=== PATIENT | male | born 1935 | race Caucasian/White ===

== ENCOUNTER 2019-12-22 01:36 | Inpatient (IN) | payer MEDICARE, OTHER ==
[2019-12-22 02:22] LABS: #Eosinphils 0.1 thou/uL (0.0-0.7); #Lymphocytes 1.5 thou/uL (1.20-3.40); #Monocytes 1.8 thou/uL (0.11-0.59); #Neutrophils 10.4 thou/uL (1.40-6.50); %Basophils 0.3 % (0.0-1.0); %Eosinophils 0.5 % (0.0-10.0); %Lymphocytes 10.8 % (21.0-51.0); %Monocytes 12.7 % (0.0-10.0); %Neutrophils 75.7 % (42.0-75.0); Hemoglobin 13.1 g/dL (14.0-18.0); Mean Corpuscular HGB CONC 34.2 g/dL (32.0-36.0); Mean Corpuscular Hemoglobin 33.2 pg (27.0-31.0); Mean Corpuscular Volume 96.9 fL (78.0-98.0); Mean Platelet Volume 6.3 fL (7.4-10.4); Platelet Count 260 thou/uL (130-400); Red Blood Cell (RBC) Count 3.95 mill/uL (4.70-6.10); White Blood Cell (WBC) Count 13.8 thou/uL (4.8-10.8)
[2019-12-22 02:42] LABS: ALT (SGPT) 21 U/L (8-55); AST (SGOT) 24 U/L (5-34); Alkaline Phosphatase 67 U/L (40-110); Anion Gap 13 mmol/L (10-20); BUN (Urea Nitrogen) 14 mg/dL (8.4-25.7); Bilirubin, Total 1.3 mg/dL (0.2-1.2); Calc. Creatinine Clearance 0 mL/min (70-130); Calcium 8.7 mg/dL (7.8-10.44); Carbon Dioxide 23 mmol/L (23-31); Chloride 99 mmol/L (98-107); Estimated GFR-MDRD Greater than 90; Globulin 2.7 g/dL (2.4-3.5); Glucose 130 mg/dL (83-110); Lipase 9 U/L (8-78); Potassium 3.9 mmol/L (3.5-5.1); Protein, Total 6.7 g/dL (5.8-8.1); Sodium 131 mmol/L (136-145)
[2019-12-22] MEDS ORDERED: Ondansetron PF 4 MG/2 ML Vial ONE (04:41)
[2019-12-22] MEDS ORDERED: Sodium Chloride 0.9% 1,000 ML IV SCH ×2 (05:45→13:30)
--- NOTE | 2019-12-22 05:56 | PDOC.HHP ---
Hospitalist HPI - History of Present Illness Abdominal pain History of Present Illness: 84-year-old gentleman with a history of hypertension was brought to the emergency department after he had a syncopal episode at home. Patient stated he passed out after using the bathroom on his way back to bed. He reported a history of vasovagal syncope and orthostatic hypotension and has fallen multiple times because of orthostatic hypotension. Per report EMS found his blood pressure to be 70/40. His blood pressure stabilized after he was given 600 mL normal saline IV. Patient was alert and oriented during my examination. He was complaining of soreness in the right upper quadrant. Abdominal CT reported p ossible acute cholecystitis. Patient is hospitalized for further management. Hospitalist ROS - Review of Systems Other: Except as documented, all other systems reviewed and negative. Hospitalist History - Past Medical History Cardiac: reports: HTN, Hyperlipidemia - Past Surgical History Other Surgical History: Bowel resection. Diverting colostomy with reversal. - Family History Family History: reports: cardiac disorder (Run in both maternal and paternal sides.) - Social History Smoking Status: Never smoker Alcohol: reports: Occassional Drugs: reports: none - Exam General Appearance: NAD, awake alert Eye: PERRL, anicteric sclera ENT: normocephalic atraumatic, no oropharyngeal lesions Neck: supple, symmetric, no JVD Heart: RRR, no murmur, no gallops, no rubs, normal peripheral pulses Respiratory: CTAB, no wheezes, no rales, no ronchi Gastrointestinal: soft, non-distended, normal bowel sounds, tender to palpation (Mild tenderness to palpation of the right upper quadrant) Extremities: no cyanosis, no edema Skin: normal turgor, no lesions Neurological: cranial nerve grossly intact, no weakness, no focal deficits Musculoskeletal: normal tone, normal strength Psychiatric: normal affect, A&O x 3 Hospitalist Results - Labs Result Diagrams: 12/22/19 02:05 12/22/19 02:05 Lab results: WBC 13.8 thou/uL (4.8-10.8) H 12/22/19 02:05 Hgb 13.1 g/dL (14.0-18.0) L 12/22/19 02:05 Hct 38.3 % (42.0-52.0) L 12/22/19 02:05 MCV 96.9 fL (78.0-98.0) 12/22/19 02:05 Plt Count 260 thou/uL (130-400) 12/22/19 02:05 Neutrophils % 75.7 % (42.0-75.0) H 12/22/19 02:05 Sodium 131 mmol/L (136-145) L 12/22/19 02:05 Potassium 3.9 mmol/L (3.5-5.1) 12/22/19 02:05 Chloride 99 mmol/L (98-107) 12/22/19 02:05 Carbon Dioxide 23 mmol/L (23-31) 12/22/19 02:05 BUN 14 mg/dL (8.4-25.7) 12/22/19 02:05 Creatinine 0.81 mg/dL (0.7-1.3) 12/22/19 02:05 Glucose 130 mg/dL (83-110) H 12/22/19 02:05 Calcium 8.7 mg/dL (7.8-10.44) 12/22/19 02:05 Total Bilirubin 1.3 mg/dL (0.2-1.2) H 12/22/19 02:05 AST 24 U/L (5-34) 12/22/19 02:05 ALT 21 U/L (8-55) 12/22/19 02:05 Alkaline Phosphatase 67 U/L (40-110) 12/22/19 02:05 Troponin I 0.023 ng/mL (< 0.028) 12/22/19 02:05 Serum Total Protein 6.7 g/dL (5.8-8.1) 12/22/19 02:05 Albumin 4.0 g/dL (3.4-4.8) 12/22/19 02:05 Lipase 9 U/L (8-78) 12/22/19 02:05 Hospitalist H&P A/P - Problem (1) Syncopal episodes Code(s): R55 - SYNCOPE AND COLLAPSE Status: Acute (2) Acute cholecystitis Code(s): K81.0 - ACUTE CHOLECYSTITIS Status: Acute (3) Orthostasis Code(s): I95.1 - ORTHOSTATIC HYPOTENSION Status: Acute (4) Hypertension Code(s): I10 - ESSENTIAL (PRIMARY) HYPERTENSION Status: Acute - Plan Plan: Placed under observation on the medical floor. Supportive measures. IV opioid PRN for pain. Empiric antibiotics. Consult to general surgery-Dr. Medina. Obtain HIDA scan per Dr. Medina recommendation. Orthostatic precautions Resume home antihypertensives once systolic blood pressure is consistently above 140.
--- NOTE | 2019-12-22 06:12 | PDOC.FMACP ---
Advance Care Planning - Problem (1) Syncopal episodes Status: Acute Code(s): R55 - SYNCOPE AND COLLAPSE (2) Acute cholecystitis Status: Acute Code(s): K81.0 - ACUTE CHOLECYSTITIS (3) Orthostasis Status: Acute Code(s): I95.1 - ORTHOSTATIC HYPOTENSION (4) Hypertension Status: Acute Code(s): I10 - ESSENTIAL (PRIMARY) HYPERTENSION - Note Summary: Advanced Care Planning was discussed. The diagnosis, prognosis and goals of care were discussed. Appropriate forms and documentation to accomplish the goals of care were discussed. All questions were answered. The Palliative Care Team will be engaged to assist with completion of any outstanding forms that are needed. Patient stated he does not want life support. He has a living will written down. His is his medical power of attorney law clerk. Full code. Time Spent (mins): 18
[2019-12-22 06:46] VITALS: BMI 28.2
[2019-12-22] MEDS ORDERED: Famotidine/PF 20 mg/2ml Vial SLOW IVP SCH ×3 (09:00→21:00)
--- NOTE | 2019-12-22 12:04 | ULT ---
PRELIMINARY REPORT/[facility]/EMERGENCY AFTER HOURS PROCEDURE: Receipt of this report by the clinical staff was confirmed with Siria Mckeon MD by Shanae Montaño on Dec 22, 2019 04:50:00 CDT. Addendum electronically signed by Shanae Montaño on December 22, 2019 4:51:46 AM CDT EXAM: US Abdomen Limited, Right Upper Quadrant. CLINICAL HISTORY: HX: ABD PAIN, ELEVATED T.BILI AND WBCS. ABNORMAL GB ON CT. SEE NOTES ON LAST IMAGE. THANKS TECHNIQUE: Real-time ultrasound of the right upper quadrant with image documentation. COMPARISON: CT - CT ABDOMEN PELVIS W CON - 12/22/2019 02:53 AM CDT FINDINGS: LIVER: Unremarkable. GALLBLADDER: No gallstone. Gallbladder sludge and distention is noted with mild wall thickening at 3 .4 mm. No pericholecystic fluid. The patient demonstrates a positive sonographic Florian's sign. COMMON BILE DUCT: No dilation. Measures 5.1 mm PANCREAS: Unremarkable as visualized. The distal pancreas is obscured by overlying bowel gas. RIGHT KIDNEY: Unremarkable. No hydronephrosis. Measures 12.6 cm IMPRESSION: The findings suggest acalculous cholecystitis ELECTRONICALLY SIGNED BY: Dung Rodriguez MD Dec 22, 2019 4:46:24 AM CDT FINAL REPORT GALLBLADDER ULTRASOUND: HISTORY: Right upper quadrant pain. FINDINGS: Real-time imaging of the right upper quadrant shows a very distended gallbladder. The technologist d escribes a positive ultrasound Florian's sign. There is some sludge, but no sludge, but no stones trent ntified. considering the degree of gallbladder distention, the gallbladder wall appears mildly thick ened. The visualized liver parenchyma shows no focal findings. The common duct is 5 mm. The right kidney is 5 mm. The right kidney is normal in size and nonobstructed. IMPRESSION: 1. Markedly distended gallbladder without evidence of gallstones. A suggestion of some gallbladder wall thickening considering the degree of distention. This could indicate an acalculus cholecystitis . There is a positive ultrasound Florian's sign. 2. This report is in agreement with the temporary report issued by [facility]. POS: OFF
--- NOTE | 2019-12-22 12:06 | CT ---
PRELIMINARY REPORT/[facility]/EMERGENCY AFTER HOURS PROCEDURE: Receipt of this report by the clinical staff was confirmed with Siria Mckeon MD by Shanae Montaño on Dec 22, 2019 03:30:00 CDT. Addendum electronically signed by Shanae Montaño on December 22, 2019 3:30:15 AM CDT EXAM: CT Abdomen and Pelvis with Intravenous Contrast CLINICAL HISTORY: ER 5... 84-year-old male presents via EMS after syncopized at home. The patient got up to use the bathroom and when he got back to bed passed out. called EMS. Patient does have a history of this and has been diagnosed with vasovagal syncope in the past. When paramedics arrived th e patient's initial blood pressures were 70s over 40s. Normalized following 600 mL normal saline. Asy mptomatic since that time apart from mild mid abdominal pain. Surgical history of hernia repair. Bloc ked colon 2000 with colostomy. TECHNIQUE: Axial computed tomography images of the abdomen and pelvis with intravenous contrast. Cor onal and sagittal reformatted images are provided. CONTRAST: With; ISOVUE 370, 90ML intravenous. COMPARISON: CT of the abdomen and pelvis 11/15/2010. FINDINGS: LUNG BASES: Bibasilar subsegmental linear atelectasis and/or scarring. The heart is normal size. No pericardial effusion. Coronary artery disease. LIVER: Unremarkable. GALLBLADDER AND BILE DUCTS: Hydropic gallbladder with suggestion of gallbladder wall thickening. Ther e are no radiodense stones within the gallbladder. PANCREAS: Unremarkable. SPLEEN: Unremarkable. ADRENAL GLANDS: Unremarkable. KIDNEYS, URETERS, AND BLADDER: Unremarkable. No hydronephrosis or nephrolithiasis. No ureteral or masoud dder calculi. STOMACH AND BOWEL: Colonic stool burden is large. No acute diverticulitis. No evidence of bowel obstr uction. APPENDIX: No CT evidence for appendicitis. PERITONEUM: No free fluid. No free air. LYMPH NODES: No lymphadenopathy. REPRODUCTIVE: Unremarkable as visualized. VASCULATURE: No aortic aneurysm. Atherosclerotic vascular disease. BONES: No fracture or suspicious osseous abnormality. Multilevel degenerative changes of the spine. ABDOMINAL WALL AND SOFT TISSUES: Right fat-containing inguinal hernia. IMPRESSION: 1. Hydropic gallbladder with wall thickening. This could represent acute cholecystitis in the appro priate clinical setting. Further imaging evaluation could be considered with ultrasound. Consider s urgical evaluation. 2. Large colonic stool burden. Correlate for constipation. 3. Right greater than left bibasilar dependent atelectasis. Superimposed pneumonia cannot be entire ly excluded. 4. Coronary artery disease. ELECTRONICALLY SIGNED BY: J Carlos Cosme M.D. Dec 22, 2019 3:23:57 AM CDT FINAL REPORT EMERGENT AFTER HOURS CT ABDOMEN AND PELVIS PERFORMED WITH COTNRAST ENHANCEMENT: HISTORY: Mid abdominal pain. History of colostomy. The patient is syncopal. COMPARISON: An 04/05/2018 exam. FINDINGS: The lung bases show bibasilar atelectatic change, worse in the right base. Coronary calcifications a re noted. The liver and spleen are unremarkable. The pancreas is atrophic. The gallbladder is markedly disten ded. There is gallbladder wall thickening associated with this. Right and left adrenal glands and right and left kidneys are normal in size. There is no significant periaortic or mesenteric adenopathy. The infrarenal aorta is ectatic but not aneurysmal. Measureme nts of approximately 2.8 cm are obtained. There is a large amount of stool present within the colon. CT OF PELVIS PERFORMED WITH CONTRAST ENHANCEMENT: It is difficult to definitively identify the appendix. I see no inflammatory change. No free fluid. The bladder is mildly distended. No pelvic lymphadenopathy or mass. Arthritic changes of the spine are noted. IMPRESSION: 1. Distended gallbladder with gallbladder wall thickening raising the possibility of cholecystitis. Ultrasound would be recommended for assessment. 2. Bibasilar atelectatic lung change. 3. Large stool burden suggesting constipation. 4. This report is in agreement with the temporary report issued by [facility]. POS: OFF
[2019-12-22 12:14] LABS: SARS-CoV-2 MS2 Positive; SARS-CoV-2 N Gene Negative; SARS-CoV-2 S Gene Negative; SARS-CoV-2 by NAA Not Detected (NotDetected); SARS-CoV-2 orf1ab Negative
--- NOTE | 2019-12-22 13:08 | RAD ---
PORTABLE CHEST: HISTORY: Syncopal episode. COMPARISON: 11/12/2018 exam. FINDINGS: Heart size is upper limits of normal. The aorta is tortuous with some atherosclerotic change. The l ungs are clear of any infiltrative process. IMPRESSION: Borderline heart size with mild chronic lung change. POS: OFF
[2019-12-22] MEDS ORDERED: Iopamidol 370 76% 100 ML VIAL ONE (13:39)
[2019-12-22] MEDS: Fentanyl 100 MCG/2 ML VIAL SLOW IVP PRN ×4 (14:17→23:36)
[2019-12-22 14:43] LABS: INR-International Normal Ratio 1.1; PTT 31.3 sec (22.9-36.1); Prothrombin Time 14.5 sec (12.0-14.7)
[2019-12-22] MEDS ORDERED: Sodium Bicarbonate 2.5 MEQ/5 ML VIAL ONE (15:39)
[2019-12-22] MEDS ORDERED: Fentanyl 100 MCG/2 ML VIAL ONE (15:40)
[2019-12-22] MEDS ORDERED: Midazolam HCl 2 mg/2 ml Vial ONE (15:40)
--- NOTE | 2019-12-22 18:10 | CON ---
DATE OF CONSULTATION: CHIEF COMPLAINT: Right upper quadrant soreness. HISTORY OF PRESENT ILLNESS: The patient is an 84-year-old male who was admitted after syncopal episode last night. With time, he reports increasing right upper quadrant soreness and pain and it is progressive. PAST MEDICAL HISTORY: Hypertension, hyperlipidemia, coronary artery disease. PAST SURGICAL HISTORY: Had colon resection, colostomy closure, knee surgery. MEDICATIONS: Include: 1. MiraLAX. 2. Toprol-XL. 3. Creon. 4. Citracal. 5. Lipitor. 6. Aspirin. FAMILY HISTORY: Heart disease. 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 Judd. He is . He is retired. No tobacco. PHYSICAL EXAMINATION: VITAL SIGNS: Temperature 99.5, pulse 73, blood pressure 150/73. GENERAL: He is in pain. HEENT: No jaundice. LUNGS: Clear. HEART: Regular rate and rhythm. ABDOMEN: Distended and very tender in the right upper quadrant with a positive Florian sign. Well-healed surgical scar midline. No hernias. EXTREMITIES: Unremarkable. LABORATORY DATA: His white count is 13.8, H and H of 13 and 38, and platelet count 260. Electrolytes, elevated glucose at 132, sodium 131, T bilirubin is 1.3. COVID is negative. CT scan of the abdomen shows hydrops of the gallbladder, very distended with possible wall thickening. No stones. Ultrasound shows again no stones, mild wall thickening. No pericholecystic fluid. Common bile duct normal at 5.1 mm. ASSESSMENT: Probable acalculous cholecystitis, but with underlying severe cardiac disease, possible with arrhythmias causing syncopal episodes. PLAN: I am not sure we can get clearance for a few days with Cardiology due to necessary tests after speaking with the immigration coordinator anhydrous ammonia production supervisor, so the plan is to consult Radiology for percutaneous drainage of the gallbladder, cholecystostomy tube, and then subsequent lap vianey when he is cleared by Cardiology. Job ID: [id number]
--- NOTE | 2019-12-22 20:33 | CT ---
CT DIRECTED CHOLECYSTOSTOMY TUBE PLACEMENT: 12/22/19 HISTORY: Patient had a positive ultrasound Florian's sign and clinically pain over the gallbladder region. Dr. Medina requested a CT directed percutaneous drainage of the gallbladder due to surgical risk. After informed consent was obtained, the patient was prepped and draped in a normal sterile fashion. Local anesthesia was obtained with 1% Xylocaine. A small skin incision was made with a #11 scalpel bl britany. A 6 [place] Uresil catheter was introduced into the gallbladder through the right lobe of the alexa er by trocar type technique. A single mass was used and catheter was placed without difficulty. Approximately 200 mL of bile was obtained. Some was sent to the lab for analysis. IMPRESSION: Successful percutaneous directed cholecystostomy tube placement. No immediate complications of the pr ocedure. POS: GRISELDA
[2019-12-22] MEDS: Famotidine/PF 20 mg/2ml Vial SLOW IVP SCH (20:53)
[2019-12-23] MEDS: Fentanyl 100 MCG/2 ML VIAL SLOW IVP PRN ×3 (04:43→21:31)
[2019-12-23 08:06] LABS: Hemoglobin 14.8 g/dL (14.0-18.0); Mean Corpuscular HGB CONC 33.8 g/dL (32.0-36.0); Mean Corpuscular Hemoglobin 33.1 pg (27.0-31.0); Mean Corpuscular Volume 97.8 fL (78.0-98.0); Mean Platelet Volume 6.4 fL (7.4-10.4); Platelet Count 256 thou/uL (130-400); RBC Distribution Width 12.1 % (11.5-14.5); Red Blood Cell (RBC) Count 4.47 mill/uL (4.70-6.10); White Blood Cell (WBC) Count 23.1 thou/uL (4.8-10.8)
[2019-12-23 08:13] LABS: Anion Gap 13 mmol/L (10-20); BUN (Urea Nitrogen) 13 mg/dL (8.4-25.7); Calc. Creatinine Clearance 98 mL/min (70-130); Calcium 9.2 mg/dL (7.8-10.44); Carbon Dioxide 22 mmol/L (23-31); Chloride 99 mmol/L (98-107); Estimated GFR-MDRD Greater than 90; Glucose 137 mg/dL (83-110); Potassium 4.1 mmol/L (3.5-5.1); Sodium 130 mmol/L (136-145)
[2019-12-23 08:37] LABS: Eosinophils 1 % (0-10); Lymphocytes 4 % (21-51); MDiff Complete? YES; Monocytes 8 % (0-10); Neutrophil 85 % (42-75); Reactive Lymphocytes 2 % (0-10)
[2019-12-23] MEDS: Famotidine/PF 20 mg/2ml Vial SLOW IVP SCH ×2 (09:03→19:41)
[2019-12-23] MEDS: Sodium Chloride 0.9% 1,000 ML IV SCH ×2 (09:10→23:50)
--- NOTE | 2019-12-23 10:52 | PRG ---
DATE OF SERVICE: 12/23/2019 SUBJECTIVE: The patient feels better since he has gallbladder drained. He is putting out 180 so far. The cultures growing gram-variable rods. He is now on Levaquin and Flagyl. OBJECTIVE: VITAL SIGNS: His temperature is 97.6, pulse 90, blood pressure 137/78. GENERAL: He looks pretty good. ABDOMEN: Soft. Minimal tenderness. ASSESSMENT: Acalculous cholecystitis. PLAN: Await cardiology clearance. Eventual lap vianey. Job ID: [id number]
--- NOTE | 2019-12-23 11:03 | PDOC.HOSPP ---
- Subjective Encounter Date: 12/23/19 Encounter Time: 10:57 Subjective: Pt reports his abdominal pain has somewhat improved. Denies N/V/D. Reports constipation for three days, but endorses flatus. Denies chest pain, SOB, palpitations. Pt examined at bedside, chart and medications reviewed. - Objective Vital Signs & Weight: Vital Signs (12 hours) Temp Pulse Resp BP Pulse Ox 12/23/19 07:18 97.6 F 90 18 137/78 95 12/22/19 23:40 98.2 F 84 18 160/82 H 95 Weight Weight 213 lb 13.574 oz I&O: 12/22/19 12/23/19 12/24/19 06:59 06:59 06:59 Intake Total 1330 Output Total 1230 Balance 100 Result Diagrams: 12/23/19 07:41 12/23/19 07:41 Hospitalist ROS - Review of Systems Constitutional: denies: fever, chills Eyes: denies: vision change Respiratory: denies: cough, dry, shortness of breath Cardiovascular: denies: chest pain, palpitations, orthopnea Gastrointestinal: reports: abdominal pain. denies: nausea, vomiting, diarrhea Genitourinary: denies: dysuria Skin: denies: rash Neurological: denies: weakness, numbness - Medication Medications: Active Medications Generic Name Dose Route Start Last Admin Trade Name Freq PRN Reason Stop Dose Admin Famotidine 20 mg 12/22/19 21:00 12/23/19 09:03 Famotidine/Pf 20 Mg/2ml Vial SLOW IVP 20 mg Q12HR NICKIE Administration Fentanyl 25 mcg 12/22/19 13:34 12/23/19 04:43 Fentanyl 100 Mcg/2 Ml Vial SLOW IVP 25 mcg Q2H PRN Administration Pain Levofloxacin 500 mg/ Device 100 mls @ 100 mls/hr 12/23/19 09:00 12/23/19 09:03 IVPB 100 mls Q24HR NICKIE Administration - Exam General Appearance: NAD, awake alert Eye: PERRL, anicteric sclera ENT: normocephalic atraumatic, no oropharyngeal lesions, moist mucosa Neck: supple, symmetric, no JVD, no thyromegaly, no lymphadenopathy, no carotid bruit Heart: RRR, no murmur, no gallops, no rubs, normal peripheral pulses Respiratory: CTAB, no wheezes, no rales, no ronchi, normal chest expansion, no tachypnea, normal percussion Gastrointestinal: soft, non-distended, normal bowel sounds, no palpable masses, no bruit, tender to palpation Extremities: no cyanosis, no clubbing, no edema Skin: normal turgor, no lesions, no rashes Neurological: cranial nerve grossly intact, normal sensation to touch, no weakn ess, no focal deficits, no new deficit Musculoskeletal: normal tone, normal strength, no muscle wasting Psychiatric: normal affect, normal behavior, A&O x 3 Hosp A/P (1) Abdominal pain Code(s): R10.9 - UNSPECIFIED ABDOMINAL PAIN Status: Acute (2) Leukocytosis Code(s): D72.829 - ELEVATED WHITE BLOOD CELL COUNT, UNSPECIFIED Status: Acute (3) Acute cholecystitis Code(s): K81.0 - ACUTE CHOLECYSTITIS Status: Acute (4) Hypertension Code(s): I10 - ESSENTIAL (PRIMARY) HYPERTENSION Status: Acute (5) Syncopal episodes Code(s): R55 - SYNCOPE AND COLLAPSE Status: Acute - Plan Acute Cholecystitis: 84F hx of HTN and recurrent vasovagal syncope presents with syncopal episode and RUQ abdominal pain. CT abdomen pelvis showed evidence of acute cholecystitis. LFTs with elevated t. refugio to 1.3. Afebrile. WBC 13.8. Pt started on IV levaquin. General surgery, Dr. Medina consulted. Pt underwent IR drainage of abscess and drain placement on 12/21 with plan for lap vianey once cardiovascular risks are evaluated by cardiology. Labs today show increasing WBC count to 23. Will add on flagyl for anaerobe coverage. Abscess cultures pending. PLAN: -Continue IV levaquin -Add IV flagyl -General surgery following -Cards consulted for cardiac eval Syncope: Pt p/w syncopal episode after going to the bathroom. BP by EMS was 70/40, improved with 600cc NS. BP now elevated to 160s. Pt with history of vasovagal/orthostatic syncopal episodes. EKG NSR, no ischemic changes. Cardiology consulted. PLAN: -Likely vasovagal -Cardiology consult -Telemetry -Orthostatic VS -Check electrolytes, TSH, Mg Hyponatremia: Na 131 this am. Likely hypovolemic hyponatremia. WIll check urine osm, na. Start gentle NS. PLAN: -NS @ 75 cc/hr -Q6hr Na -Sodium correction not to exceed 8 mEqs in 24 hrs -Urine studies Constipation: Hx of chronic constipation. Takes miralax at home. Pt reports 3 days without BM. Endorses flatus. Will re-start home miralax. Hypertension: Hold home BP meds in setting of syncope. CAD: Hx of CAD. Continue home ASA 81 mg, hold metoprolol in setting of hypotension/syncope. Hyperlipidemia: Continue home atorvastatin 20 mg DVT prophylaxis: lovenox FULL CODE Case discussed with attending physician, Dr. Chaves.
--- NOTE | 2019-12-23 11:24 | CON ---
DATE OF CONSULTATION: REASON FOR CONSULTATION: Syncope. 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 Alejandro Judd. HISTORY OF PRESENT ILLNESS: Mr. Moya is an 84-year-old gentleman who was seen and evaluated by Dr. Alejandro Judd in the past. States the events surrounding his most recent admission included getting up in the middle of the night on Tuesday. He went to the bathroom and developed some mild lightheadedness. He returned to his bed. He states his stated he had a syncopal episode. He has had lightheadedness, dizziness, and syncope noted since the age of 22. He has had a full cardiac workup in the past. He has not had a recent echo performed. His last stress study was performed in 2010. He denies chest pain, pressure, or other associated symptoms. He was diagnosed with cholecystitis. He underwent CT-guided drainage with 200 mL of bile removed yesterday. He is now awaiting a cholecystectomy. PAST MEDICAL HISTORY: Includes carotid disease, hypertension, mild aortic stenosis, hyperlipidemia, paroxysmal atrial fibrillation, hypertension, hyperlipidemia. HOME MEDICATIONS: Include, 1. Zocor. 2. Amlodipine. 3. Clonidine p.r.n. 4. Metoprolol. 5. Aspirin. 6. Omeprazole. 7. Citracal. 8. Astelin. 9. Ibuprofen p.r.n. 10. MiraLAX. 11. Creon. SURGICAL HISTORY: Knee replacement. FAMILY HISTORY: Father with stroke. Otherwise, no significant CAD. ALLERGIES: PENICILLIN, LATEX, MORPHINE. REVIEW OF SYSTEMS: A 10-point review of systems is reviewed as above, otherwise negative. PHYSICAL EXAMINATION: GENERAL: Patient is a pleasant 84-year-old gentleman who is in no acute distress. The patient appears their stated age. VITAL SIGNS: Blood pressure 137/78, pulse 90, temperature 97.6. NEUROLOGIC: The patient is alert and oriented x3 with no focal neurologic deficits. HEENT: Sclerae without icterus. Mouth has moist mucous membranes with normal pallor. NECK: No JVD. Carotid upstroke brisk. No bruits bilaterally. LUNGS: Clear to auscultation with unlabored respirations. BACK: No scoliosis or kyphosis. CARDIAC: Regular rate and rhythm with normal S1 and S2. No S3 or S4 noted. No significant rubs, murmurs, thrills, or gallops noted throughout the precordium. PMI is not displaced. There is no parasternal heave. ABDOMEN: Soft, nontender, nondistended. No peritoneal signs present. No hepatosplenomegaly. No abnormal striae. EXTREMITIES: 2+ femoral and 2+ dorsalis pedis pulses. No cyanosis, clubbing, or edema. SKIN: No gross abnormalities. PERTINENT LABORATORY DATA: Hemoglobin 14.8, hematocrit 43.7, white blood cell count 23.1, platelet count 256. Potassium 4.1, creatinine 0.77. IMPRESSION: 1. Syncope. 2. Paroxysmal atrial fibrillation. 3. Cholecystitis. RECOMMENDATIONS: Mr. Moya states this is a chronic condition and has been noted since the age of 22. He has had a full cardiac workup in the past that is felt to be negative. At this point, I recommend echo Doppler to assess LVEF and assess his aortic stenosis. Given no current symptoms suggesting angina with the EKG appearing normal with no ST-T wave changes suggesting acute ischemia, would be okay to proceed with cholecystectomy. He is considered low risk for low-risk procedure. Timing will be up to Dr. Medina. Otherwise, further recommendation per Dr. Alejandro Judd in a.m. Job ID: [id number]
[2019-12-23] MEDS: metroNIDAZOLE 500 MG in Premix Bag 1 BAG IVPB SCH ×2 (14:19→21:32)
[2019-12-23 15:18] LABS: Sodium 130 mmol/L (136-145)
[2019-12-23] MEDS: Polyethylene Glycol 3350 17 GM Packet PO PRN (17:26)
[2019-12-23] MEDS: Atorvastatin Calcium 20 MG TAB PO SCH (19:41)
[2019-12-23 20:20] LABS: Sodium 128 mmol/L (136-145)
[2019-12-24] MEDS: Calcium Carbonate 500 MG ChewTAB PO PRN ×2 (03:58→18:46)
[2019-12-24] MEDS: Sodium Chloride 0.9% 1,000 ML IV SCH ×2 (03:59→20:15)
[2019-12-24 05:26] LABS: Band 7 % (5-11); Hemoglobin 13.9 g/dL (14.0-18.0); Lymphocytes 3 % (21-51); MDiff Complete? YES; Mean Corpuscular HGB CONC 33.6 g/dL (32.0-36.0); Mean Corpuscular Hemoglobin 32.7 pg (27.0-31.0); Mean Corpuscular Volume 97.2 fL (78.0-98.0); Mean Platelet Volume 6.6 fL (7.4-10.4); Monocytes 8 % (0-10); Neutrophil 82 % (42-75); Platelet Count 256 thou/uL (130-400); Platelet Morphology Comment Appears Adequate; Red Blood Cell (RBC) Count 4.27 mill/uL (4.70-6.10); White Blood Cell (WBC) Count 19.2 thou/uL (4.8-10.8)
[2019-12-24 05:30] LABS: Anion Gap 15 mmol/L (10-20); BUN (Urea Nitrogen) 22 mg/dL (8.4-25.7); Calc. Creatinine Clearance 97 mL/min (70-130); Carbon Dioxide 19 mmol/L (23-31); Chloride 100 mmol/L (98-107); Estimated GFR-MDRD Greater than 90; Glucose 128 mg/dL (83-110); Potassium 3.8 mmol/L (3.5-5.1); Sodium 130 mmol/L (136-145)
[2019-12-24] MEDS: metroNIDAZOLE 500 MG in Premix Bag 1 BAG IVPB SCH ×3 (06:25→20:16)
[2019-12-24 08:36] LABS: Sodium 132 mmol/L (136-145)
[2019-12-24] MEDS: Famotidine/PF 20 mg/2ml Vial SLOW IVP SCH ×2 (09:13→20:16)
[2019-12-24] MEDS: Aspirin 81 mg Enteric Coated Tablet PO SCH (09:13)
--- NOTE | 2019-12-24 09:20 | PRG ---
DATE OF SERVICE: 12/24/2019 SUBJECTIVE: The patient reports feeling better today, really much better pain. He is hungry. He is asking for some toast and coffee. No nausea or vomiting. PHYSICAL EXAMINATION: VITAL SIGNS: His temperature 97.8, pulse 85, blood pressure 143/85. GENERAL: He looks good. He is in the middle of getting an echocardiogram. 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 LABORATORY DATA: His white count is 19, down from 23; hemoglobin and hematocrit of 13 and 41; and platelet count 256. His electrolytes are okay. ASSESSMENT: Improving acute cholecystitis after drainage. PLAN: Continue cardiac workup. Once more stable, consider cholecystectomy. Job ID: [id number]
[2019-12-24] MEDS ORDERED: Ondansetron ODT 4 MG TAB PO PRN (10:15)
--- NOTE | 2019-12-24 10:25 | PDOC.HOSPP ---
- Subjective Encounter Date: 12/24/19 Encounter Time: 10:23 Subjective: Patient seen and examined. No new complaints. No overnight events. Patient reports feeling nauseated, tolerating oral intake. Reports feeling bloated, LBM 3-4 days. Denies vomiting. Denies chest pain, heart palpitations, SOB or Light headedness at time of interview. Denies feeling feverish or chills. - Objective Vital Signs & Weight: Vital Signs (12 hours) Temp Pulse Resp BP BP BP Pulse Ox 12/24/19 07:23 97.8 F 85 14 143/85 H 93 L 12/24/19 06:15 98.0 F 87 18 130/84 92 L 12/23/19 23:33 98.2 F 81 18 137/76 94 L Weight Weight 213 lb 13.574 oz I&O: 12/23/19 12/24/19 12/25/19 06:59 06:59 06:59 Intake Total 1330 85647 Output Total 1350 1350 Balance -20 34401 Result Diagrams: 12/24/19 04:51 12/24/19 07:50 Hospitalist ROS - Review of Systems Constitutional: denies: fever, chills Respiratory: denies: cough, shortness of breath, hemoptysis Cardiovascular: denies: chest pain, palpitations, edema, light headedness Gastrointestinal: reports: nausea, abdominal pain (RUQ), constipation (chronic, LBM 3-4 days). denies: vomiting, diarrhea, melena, hematochezia Genitourinary: denies: dysuria, hematuria Skin: denies: rash, bruising Neurological: denies: weakness, change in speech, confusion All other systems reviewed; all pertinent +/- noted in HPI/Subj - Medication Medications: Active Medications Generic Name Dose Route Start Last Admin Trade Name Freq PRN Reason Stop Dose Admin Aspirin 81 mg 12/24/19 09:00 12/24/19 09:13 Aspirin 81 Mg Enteric Coated Tablet PO 81 mg DAILY NICKIE Administration Atorvastatin Calcium 20 mg 12/23/19 21:00 12/23/19 19:41 Atorvastatin Calcium 20 Mg Tab PO 20 mg HS NICKIE Administration Calcium Carbonate 1,000 mg 12/24/19 03:43 12/24/19 03:58 Calcium Carbonate 500 Mg Chewtab PO 1,000 mg Q4H PRN Administration Heartburn or Indigestion Famotidine 20 mg 12/22/19 21:00 12/24/19 09:13 Famotidine/Pf 20 Mg/2ml Vial SLOW IVP 20 mg Q12HR NICKIE Administration Fentanyl 25 mcg 12/22/19 13:34 12/23/19 21:31 Fentanyl 100 Mcg/2 Ml Vial SLOW IVP 25 mcg Q2H PRN Administration Pain Levofloxacin 500 mg/ Device 100 mls @ 100 mls/hr 12/23/19 09:00 12/24/19 09:13 IVPB 100 mls Q24HR NICKIE Administration Metronidazole 500 mg/ Device 100 mls @ 100 mls/hr 12/23/19 14:00 12/24/19 06:25 IVPB 100 mls Q8HR NICKIE Administration Sodium Chloride 1,000 mls @ 75 mls/hr 12/23/19 08:30 12/24/19 03:59 Normal Saline 0.9% IV 1,000 mls .[id number] NICKIE Administration Polyethylene Glycol 17 gm 12/23/19 09:05 12/23/19 17:26 Polyethylene Glycol 3350 17 Gm Packet PO 17 gm DAILYPRN PRN Administration Constipation - Exam General Appearance: NAD, awake alert Eye: anicteric sclera ENT: normocephalic atraumatic, dry oral mucosa Neck: supple, symmetric, no JVD Heart: RRR, no gallops, no rubs, normal peripheral pulses, III/IV (aortic listening point) Respiratory: CTAB, no wheezes, no rales, no ronchi, normal chest expansion, no tachypnea Gastrointestinal: soft, normal bowel sounds, no bruit, no guarding, no rigidity, tender to palpation (RUQ, + cardona sign), distended Extremities: no cyanosis, no edema Neurological: no focal deficits Musculoskeletal: normal tone, normal strength Psychiatric: normal affect, A&O x 3 Hosp A/P (1) Acute cholecystitis Code(s): K81.0 - ACUTE CHOLECYSTITIS Status: Acute (2) Syncopal episodes Code(s): R55 - SYNCOPE AND COLLAPSE Status: Acute (3) Hyponatremia Code(s): E87.1 - HYPO-OSMOLALITY AND HYPONATREMIA Status: Acute (4) Constipation Code(s): K59.00 - CONSTIPATION, UNSPECIFIED Status: Chronic (5) HTN (hypertension) Code(s): I10 - ESSENTIAL (PRIMARY) HYPERTENSION Status: Chronic - Plan # Acute cholecystitis IR drain in place WBC 19.2, down from 23.1 Continue flagyl and levaquin IVPB Cardiology recs appreciate. Echo pending Cleared by cardiology for surgery # Syncopal episode Cardiology recs appreciated. Echo pending, Hx Orthostatic hypotension positive. Continue tele monitoring. # Hyponatremia Hypotonic hyponetremia Na 131, improved with IVF. Continue IVF Serum Na q6 hours. # Constipation A: abd. distended, LBM 3-4 days takes miralax daily, continue Add sennakot and fleet enema #HTN BP slightly elevated, HR 80s. Restart home dose BB. Discussed case with Dr. Chaves.
[2019-12-24] MEDS ORDERED: Senokot S 8.6-50 MG TAB PO PRN (10:46)
[2019-12-24] MEDS: Ondansetron PF 4 MG/2 ML Vial IVP PRN ×2 (11:32→20:24)
[2019-12-24] MEDS: Polyethylene Glycol 3350 17 GM Packet PO PRN (11:33)
[2019-12-24] MEDS: Fentanyl 100 MCG/2 ML VIAL SLOW IVP PRN ×2 (13:47→21:55)
--- NOTE | 2019-12-24 14:22 | CT ---
CT DIRECTED CHOLECYSTOSTOMY TUBE PLACEMENT: 12/22/19 HISTORY: Patient had a positive ultrasound Florian's sign and clinically pain over the gallbladder region. Dr. Medina requested a CT directed percutaneous drainage of the gallbladder due to surgical risk. After informed consent was obtained, the patient was prepped and draped in a normal sterile fashion. Local anesthesia was obtained with 1% Xylocaine. A small skin incision was made with a #11 scalpel bl britany. A 6 [place] Island[place] Uresil catheter was introduced into the gallbladder through the right lobe of the alexa er by trocar type technique. A single mass was used and catheter was placed without difficulty. Approximately 200 mL of bile was obtained. Some was sent to the lab for analysis. IMPRESSION: Successful percutaneous directed cholecystostomy tube placement. No immediate complications of the pr ocedure.
[2019-12-24] MEDS ORDERED: Fleet Enema 133 ML BOT PR SCH (14:30)
[2019-12-24 15:06] LABS: Sodium 133 mmol/L (136-145)
[2019-12-24] MEDS: Atorvastatin Calcium 20 MG TAB PO SCH (20:16)
[2019-12-25] MEDS: Fentanyl 100 MCG/2 ML VIAL SLOW IVP PRN (01:01)
[2019-12-25] MEDS: metroNIDAZOLE 500 MG in Premix Bag 1 BAG IVPB SCH (04:58)
[2019-12-25] MEDS: Ondansetron PF 4 MG/2 ML Vial IVP PRN (05:00)
[2019-12-25 05:40] LABS: #Lymphocytes 1.4 thou/uL (1.20-3.40); #Monocytes 1.4 thou/uL (0.11-0.59); #Neutrophils 11.4 thou/uL (1.40-6.50); %Basophils 0.1 % (0.0-1.0); %Eosinophils 0.2 % (0.0-10.0); %Monocytes 9.7 % (0.0-10.0); %Neutrophils 79.9 % (42.0-75.0); Hemoglobin 13.9 g/dL (14.0-18.0); Mean Corpuscular HGB CONC 33.7 g/dL (32.0-36.0); Mean Corpuscular Hemoglobin 32.8 pg (27.0-31.0); Mean Corpuscular Volume 97.3 fL (78.0-98.0); Mean Platelet Volume 6.6 fL (7.4-10.4); Platelet Count 272 thou/uL (130-400); Red Blood Cell (RBC) Count 4.24 mill/uL (4.70-6.10); White Blood Cell (WBC) Count 14.3 thou/uL (4.8-10.8)
[2019-12-25 06:06] LABS: Anion Gap 14 mmol/L (10-20); BUN (Urea Nitrogen) 25 mg/dL (8.4-25.7); Calc. Creatinine Clearance 98 mL/min (70-130); Carbon Dioxide 21 mmol/L (23-31); Chloride 102 mmol/L (98-107); Estimated GFR-MDRD Greater than 90; Glucose 112 mg/dL (83-110); Potassium 3.7 mmol/L (3.5-5.1); Sodium 133 mmol/L (136-145)
[2019-12-25] MEDS: Aspirin 81 mg Enteric Coated Tablet PO SCH (08:44)
[2019-12-25] MEDS: Famotidine/PF 20 mg/2ml Vial SLOW IVP SCH (08:44)
--- NOTE | 2019-12-25 08:44 | PRG ---
DATE OF SERVICE: 12/25/2019 SUBJECTIVE: The patient feels really good. He says pain is just about gone. He wants to go home. OBJECTIVE: VITAL SIGNS: His temperature is 98, pulse 68, blood pressure 165/90. He looks good. His drain is putting out 200. His white count is down to 14 from 23. The culture is growing, well here it just says moderate Gram variable rods, but it is not growing anything. ASSESSMENT: Acute cholecystitis. PLAN: Complete cardiac clearance. It would be best to send him home with the drain. Follow up with me in 2 weeks. We will schedule elective surgery in about a month when the inflammation is less. Job ID: [id number]
[2019-12-25 11:53] VITALS: TEMP 98.2
[2019-12-25 13:07] VITALS: BP 158/81
--- NOTE | 2019-12-25 15:20 | DIS ---
DATE OF ADMISSION: 12/22/2019 DATE OF DISCHARGE: 12/25/2019 DISCHARGE DIAGNOSES: 1. Acute cholecystitis, [acalculous cholecystitis] status post drain placement. 2. Syncopal episode. 3. Orthostatic hypotension. 4. Hypotonic hyponatremia. Sodium improved to 133 on the day of discharge. 5. Constipation. 6. Hypertension. DISCHARGE MEDICATIONS: There is no change in his home medications. 1. Toprol-XL 25 mg daily. 2. Creon 1 capsule daily. 3. Lipitor 20 mg at bedtime. 4. Aspirin 81 mg daily. 5. Calcium supplements. PHYSICAL EXAMINATION: VITAL SIGNS: On the day of discharge, the temperature 98.2, pulse 86, blood pressure 145/83, saturating 94% on room air. GENERAL: The patient is alert, oriented. He has a drain on his right side, bilious fluid. He knows how to empty the drain. He also knows how to cover it while he is taking the shower. CARDIOVASCULAR: Regular rate and rhythm without murmurs, rubs, or gallops. LUNGS: Clear to auscultation bilaterally without wheezing, rales, or rhonchi. ABDOMEN: Soft, nontender, nondistended. Good bowel sounds. EXTREMITIES: Without any pitting edema. He has a drain in his right lower quadrant. HOSPITAL COURSE: This is a 84-year-old male admitted with syncopal episode, orthostasis positive. Reportedly increasing right upper quadrant soreness and pain. Initially, his white count of 13.8 jumped to 23,000 and trended down to 14.3 after the drain placement. His creatinine is in the normal range. His alkaline phosphatase on initial presentation is 67 and AST 24, ALT 21, so likely acalculous cholecystitis. There is percutaneous drainage off the gallbladder placed and they like to let it drain for 2 more weeks and then elective cholecystectomy after that period. His echo showed EF of 65%, moderately dilated left atrium . Cardiology cleared him. He will be coming back in 2 weeks for elective cholecystectomy. Surgery cleared him for discharge. He will resume his regular diet and continue his home medications without much change. DISCHARGE INSTRUCTIONS: Activity as tolerated. Follow up with PCP in 1 week. Follow up with General surgery, Dr. Medina and Dr. Cummins's group in 2 weeks' time. Discharge time took over 35 minutes. Job ID: [id number] MTDD
== END 2019-12-25 14:40 | disposition home or self-care (01) | DRG 445 ==
LOC: ERS 01:36 → SURG A 06:26
PROVIDERS: ADMIT Internal Medicine; ATTEND Internal Medicine
PROC: 0F9430Z Drainage of Gallbladder with Drainage Device, Percutaneous Approach (ICD-10-PCS; principal; 2019-12-22)
DX: K81.0 Acute cholecystitis (principal); E87.1 Hypo-osmolality and hyponatremia; I95.1 Orthostatic hypotension; I10 Essential (primary) hypertension; E78.00 Pure hypercholesterolemia, unspecified; D72.829 Elevated white blood cell count, unspecified; I25.10 Atherosclerotic heart disease of native coronary artery without angina pectoris; Z96.651 Presence of right artificial knee joint; K59.00 Constipation, unspecified; I48.0 Paroxysmal atrial fibrillation; I35.0 Nonrheumatic aortic (valve) stenosis; Z93.3 Colostomy status; Z91.040 Latex allergy status; Z88.0 Allergy status to penicillin; Z88.6 Allergy status to analgesic agent; Z88.8 Allergy status to other drugs, medicaments and biological substances; Z79.899 Other long term (current) drug therapy; Z79.82 Long term (current) use of aspirin; Z20.828 Contact with and (suspected) exposure to other viral communicable diseases
CPT/HCPCS: 36415; 49020; 71045; 74177; 76705; 77002; 80048; 80053; 83690; 83735; 83930; 83935; 84295; 84300; 84443; 84484; 85025; 85610; 85730; 87070; 87205; 87635; 93005; 93306; 96374; J1956; J2250; J2405; J3010; Q9967; S0028; U0003

== ENCOUNTER 2020-01-15 10:10 | Outpatient (CLI) | payer MEDICARE ==
--- NOTE | 2020-01-15 11:37 | RAD ---
Exam: Tube check with fluoroscopy HISTORY: Percutaneous cystostomy tube. Exposure: 0.8 minutes, 20.978 frausto per centimeter square FINDINGS: Patient was ministered total of 10 cc of Isovue-M 300 contrast. Contrast opacifies the gallbladder. C ontrast opacifies the cystic duct, common bile duct. Contrast does reflux into the central intrahepatic biliary system. Contrast does opacify the duodenum. IMPRESSION: Passage of contrast from the gallbladder. The cystic duct into the common bile duct. There is fluoros copic evidence of cystic duct patency.
== END 2020-01-15 10:11 | disposition home or self-care (01) ==
LOC: RAD 10:10
PROVIDERS: ATTEND Surgery
DX: K81.0 Acute cholecystitis (principal)
CPT/HCPCS: 76000

== ENCOUNTER 2020-02-05 06:45 | Outpatient (CLI) | payer MEDICARE ==
[2020-02-05 10:04] LABS: #Eosinphils 0.2 10x3/uL (0.0-0.5); #Monocytes 0.8 10x3/uL (0.0-1.1); #Neutrophils 3.9 10x3/uL (1.5-8.4); %Basophils 0.6 % (0.0-2.0); %Eosinophils 2.3 % (0.0-6.0); %Lymphocytes 27.9 % (18.0-47.0); %Neutrophils 56.5 % (40.0-75.0); Hemoglobin 13.5 g/dL (14.0-18.0); Mean Corpuscular HGB CONC 33.2 G/DL (32.0-36.0); Mean Corpuscular Volume 96.4 fl (80.0-100.0); Mean Platelet Volume 8.8 fl (7.4-10.4); Platelet Count 270 10x3/uL (130-400); RBC Distribution Width 13.8 % (11.5-14.5); Red Blood Cell (RBC) Count 4.22 10x6/uL (4.40-5.80); White Blood Cell (WBC) Count 6.9 10x3/uL (4.5-11.0)
[2020-02-05 10:19] LABS: ALT (SGPT) 19 U/L (8-55); AST (SGOT) 22 U/L (5-34); Albumin 4.6 g/dL (3.4-4.8); Alkaline Phosphatase 69 U/L (40-110); Anion Gap 15 mmol/L (10-20); BUN (Urea Nitrogen) 10 mg/dL (8.4-25.7); Bilirubin, Direct 0.4 mg/dL (0.1-0.3); Bilirubin, Total 0.9 mg/dL (0.2-1.2); Calc. Creatinine Clearance 0 mL/min (70-130); Calcium 9.6 mg/dL (7.8-10.44); Carbon Dioxide 25 mmol/L (23-31); Chloride 100 mmol/L (98-107); Estimated GFR-MDRD 88; Globulin 2.9 g/dL (2.4-3.5); Glucose 111 mg/dL (83-110); Potassium 4.3 mmol/L (3.5-5.1); Protein, Total 7.5 g/dL (5.8-8.1); Sodium 136 mmol/L (136-145)
[2020-02-05 22:24] LABS: SARS-CoV-2 MS2 Positive; SARS-CoV-2 N Gene Negative; SARS-CoV-2 S Gene Negative; SARS-CoV-2 by NAA Not Detected (NotDetected); SARS-CoV-2 orf1ab Negative
--- NOTE | 2020-02-08 07:02 | EKG ---
Test Reason : PREOP Blood Pressure : / mmHG Vent. Rate : 093 BPM Atrial Rate : 100 BPM P-R Int : 000 ms QRS Dur : 096 ms QT Int : 362 ms P-R-T Axes : 000 045 003 degrees QTc Int : 450 ms Atrial fibrillation Nonspecific ST abnormality Abnormal ECG When compared with ECG of 22-DEC-2019 01:46, Atrial fibrillation has replaced Sinus rhythm Confirmed by NITISH ALEMAN, YASMINE ([id number]) on 02/08/2020 7:02:01 AM Referred By: Fahad NETTLES Confirmed By:YASMINE TALBERT MD
== END 2020-02-05 06:46 | disposition home or self-care (01) ==
LOC: LABBT 06:45
PROVIDERS: ATTEND Surgery
DX: Z01.818 Encounter for other preprocedural examination (principal); K81.0 Acute cholecystitis; Z20.828 Contact with and (suspected) exposure to other viral communicable diseases
CPT/HCPCS: 80053; 80076; 85025; 93005; U0003; 87635; 93010

== ENCOUNTER 2020-02-08 07:01 | Inpatient (IN) | payer MEDICARE ==
[2020-02-07 09:23] VITALS: BMI 26.6
[2020-02-08] MEDS ORDERED: Levofloxacin 500 mg/D5W 100 ml Premix Bag ONE (07:58)
[2020-02-08] MEDS ORDERED: Lidocaine 1% w/Epinephrine 1:100K 20 ML VIAL ONE (08:48)
[2020-02-08] MEDS ORDERED: Bupivacaine 0.25% HCL 30 ML VIAL ONE (08:48)
[2020-02-08] MEDS ORDERED: Fentanyl 100 MCG/2 ML VIAL ONE ×4 (08:54→11:48)
[2020-02-08] MEDS ORDERED: hydrALAZINE 20 MG/ML VIAL SLOW IVP PRN (10:36)
[2020-02-08] MEDS ORDERED: HYDROcodone/Acetaminophen 10/325 mg Tablet PO PRN ×2 (10:36)
[2020-02-08] MEDS ORDERED: Dextrose 5% in Water 1,000 ML IV PRN (10:36)
[2020-02-08] MEDS ORDERED: Mag-Al 1200 mg/1200 mg/30 ML UDCUP PO PRN (10:36)
[2020-02-08] MEDS ORDERED: Promethazine HCl 25 MG/ML VIAL IM PRN (10:36)
[2020-02-08] MEDS ORDERED: Calcium Carbonate 500 MG ChewTAB PO PRN (10:36)
[2020-02-08] MEDS ORDERED: Dextrose 50% Abboject 50 ML SYRINGE SLOW IVP PRN (10:36)
--- NOTE | 2020-02-08 10:53 | OP ---
DATE OF PROCEDURE: 02/08/2020 PREOPERATIVE DIAGNOSIS: [id number] cholecystitis. PROCEDURES PERFORMED: 1. Attempted laparoscopic cholecystectomy. 2. Open cholecystectomy. INDICATIONS: The patient is an 84-year-old male who came in through the emergency room a couple of months ago with acute acalculous cholecystitis. At that time, he was having cardiac issues and had a perc drain performed of his gallbladder. He has had occasional bouts of pain since. He did get cardiac clearance. FINDINGS: Incredible extreme adhesions. There was absolutely no free area in his abdominal peritoneal cavity, had to open him in order to perform the operation. DESCRIPTION OF PROCEDURE: After informed consent was obtained, the patient was taken to the operating room and given general endotracheal anesthesia. He was placed in the supine position. His abdomen was prepped and draped in the usual fashion. Local anesthesia was infiltrated subcutaneously and deep. He had a previous midline incision. He had a previous ruptured colon. He had a previous colostomy in the left lower quadrant, so a 5-mm incision was performed in the right upper quadrant subcostal. The Veress needle inserted. Drop test performed. Pneumoperitoneum was created to a volume of 2 L of carbon dioxide. Then, utilizing a bladeless 5-mm trocar, the 5-mm scope and trocar inserted under direct vision. There was no free space, so I thought well maybe I had insufflated in the subcu, so I attempted to go to the right lower quadrant again with the Veress needle. Again, just an incredible amount of adhesions. There was no free space to be able to see or do anything. For that reason, an open procedure was performed. A right subcostal incision performed. Subcu divided sharply. The rectus fascia was incised sharply. The muscle divided with electrocautery. Posterior rectus fascia was divided sharply. An open lysis of adhesions was then performed and the gallbladder was found. It was very distended. Retraction was achieved with the Bookwalter. The gallbladder was taken down, dome down, the cystic artery was clipped and divided, the cystic duct was clipped and divided, sent to Pathology for further analysis. The liver bed was cauterized. The wound was irrigated. Donta powder was sprayed into the liver bed. Hemostasis was assured. The posterior rectus fascia was closed with a running #1 PDS. The anterior rectus fascia closed with a running #1 PDS. Subcu irrigated. Skin closed with skin asif. The patient tolerated the procedure well, transferred to Recovery in good condition. Job ID: [id number]
[2020-02-08] MEDS: Ketorolac Tromethamine 30 MG/ML VIAL IVP SCH ×3 (12:40→23:32)
[2020-02-08] MEDS: Sodium Chloride 0.9% 1,000 ML IV SCH ×2 (12:41→23:31)
[2020-02-08] MEDS ORDERED: PROPOFOL 200 MG/20 ML VIAL ONE (12:59)
[2020-02-08] MEDS ORDERED: Rocuronium Bromide 10 MG/ML (10ML VIAL) ONE (12:59)
[2020-02-08] MEDS ORDERED: Lidocaine 1% PF 5 ML VIAL ONE (12:59)
[2020-02-08] MEDS ORDERED: Glycopyrrolate 0.2 MG/ML 5 ML SYRINGE ONE (12:59)
[2020-02-08] MEDS ORDERED: Ondansetron PF 4 MG/2 ML Vial ONE (12:59)
[2020-02-08] MEDS: Fentanyl 100 MCG/2 ML VIAL SLOW IVP PRN ×2 (13:12→16:36)
[2020-02-08] MEDS: Ondansetron PF 4 MG/2 ML Vial IVP PRN (18:39)
[2020-02-08] MEDS: Famotidine/PF 20 mg/2ml Vial SLOW IVP SCH (20:51)
[2020-02-08] MEDS: Famotidine 20 MG TAB PO SCH (23:31)
[2020-02-09] MEDS: Sodium Chloride 0.9% 1,000 ML IV SCH ×3 (03:30→21:43)
[2020-02-09] MEDS: Ketorolac Tromethamine 30 MG/ML VIAL IVP SCH ×4 (06:19→23:56)
[2020-02-09] MEDS: Ondansetron PF 4 MG/2 ML Vial IVP PRN ×2 (06:27→11:50)
[2020-02-09 06:49] LABS: #Basophils 0.1 thou/uL (0.0-0.2); #Lymphocytes 1.3 thou/uL (1.20-3.40); #Monocytes 1.4 thou/uL (0.11-0.59); #Neutrophils 8.2 thou/uL (1.40-6.50); %Basophils 0.5 % (0.0-1.0); %Eosinophils 0.3 % (0.0-10.0); %Monocytes 12.6 % (0.0-10.0); %Neutrophils 74.7 % (42.0-75.0); Hemoglobin 13.1 g/dL (14.0-18.0); Mean Corpuscular HGB CONC 33.3 g/dL (32.0-36.0); Mean Corpuscular Hemoglobin 32.7 pg (27.0-31.0); Mean Corpuscular Volume 98.3 fL (78.0-98.0); Mean Platelet Volume 6.3 fL (7.4-10.4); Platelet Count 235 thou/uL (130-400); RBC Distribution Width 12.4 % (11.5-14.5)
[2020-02-09 07:05] LABS: Phosphorus 2.7 mg/dL (2.3-4.7)
[2020-02-09 07:12] LABS: ALT (SGPT) 42 U/L (8-55); AST (SGOT) 48 U/L (5-34); Albumin 3.8 g/dL (3.4-4.8); Alkaline Phosphatase 69 U/L (40-110); Anion Gap 13 mmol/L (10-20); BUN (Urea Nitrogen) 12 mg/dL (8.4-25.7); Bilirubin, Total 1.6 mg/dL (0.2-1.2); Calc. Creatinine Clearance 93 mL/min (70-130); Calcium 8.8 mg/dL (7.8-10.44); Carbon Dioxide 24 mmol/L (23-31); Chloride 101 mmol/L (98-107); Estimated GFR-MDRD Greater than 90; Globulin 2.7 g/dL (2.4-3.5); Glucose 115 mg/dL (83-110); Lipase 6 U/L (8-78); Magnesium 1.7 mg/dL (1.6-2.6); Potassium 4.4 mmol/L (3.5-5.1); Protein, Total 6.5 g/dL (5.8-8.1); Sodium 134 mmol/L (136-145)
[2020-02-09] MEDS: Famotidine/PF 20 mg/2ml Vial SLOW IVP SCH ×2 (08:53→20:19)
[2020-02-09] MEDS: Enoxaparin Sodium 30 MG/0.3 ML SYRINGE SC SCH (08:53)
[2020-02-09] MEDS: Famotidine 20 MG TAB PO SCH ×2 (08:55→21:43)
[2020-02-09] MEDS ORDERED: Magnesium Sulfate 2 GM in Sodium Chloride 0.9% 100 ML IVPB SCH (09:00)
[2020-02-09] MEDS ORDERED: traMADol HCl 50 MG TAB PO PRN (12:01)
[2020-02-09] MEDS ORDERED: Cyclobenzaprine 10 MG TAB PO PRN (12:01)
[2020-02-09] MEDS ORDERED: HYDROcodone/Acetaminophen 10/325 mg Tablet PO PRN ×2 (12:12)
[2020-02-09] MEDS ORDERED: Polyethylene Glycol 3350 17 GM Packet PO SCH (12:15)
[2020-02-09] MEDS ORDERED: Scopolamine 1.5 mg/72 hour Patch TOP PRN (13:41)
[2020-02-09] MEDS: traMADol HCl 50 MG TAB PO SCH ×2 (15:24→20:20)
[2020-02-09] MEDS: Acetaminophen 500 MG TAB PO SCH ×2 (18:20→23:57)
[2020-02-09] MEDS: Senokot S 8.6-50 MG TAB PO SCH (20:20)
[2020-02-09] MEDS: Atorvastatin Calcium 20 MG TAB PO SCH (20:20)
--- NOTE | 2020-02-09 22:07 | PRG ---
DATE OF SERVICE: 02/09/2020 SUBJECTIVE: The patient was seen during morning rounds on the surgical floor. The patient is postop day #1 status post open cholecystectomy. The patient is currently awake, alert, in moderate distress due to nausea. The patient attempted to sit up at the side of the bed earlier and was dizzy and nauseated. The patient has not had a bowel movement or passed any gas. Abdominal dressing is clean, dry, and intact. The patient's abdomen is slightly distended, soft, nontender, and no peritoneal signs. ASSESSMENT: Open cholecystectomy after attempted laparoscopic. PLAN: Continue supportive care and pain regimen. We will place the patient on a bowel regimen. Also place a scopolamine patch for nausea and dizziness. Replace electrolytes. Physical and occupational therapy. The plan was discussed with the patient and family who agrees. Job ID: [id number]
[2020-02-10] MEDS: traMADol HCl 50 MG TAB PO SCH ×4 (04:11→20:04)
[2020-02-10] MEDS: Sodium Chloride 0.9% 1,000 ML IV SCH ×3 (05:23→22:42)
[2020-02-10 05:58] LABS: #Eosinphils 0.3 thou/uL (0.0-0.7); #Monocytes 1.4 thou/uL (0.11-0.59); #Neutrophils 5.8 thou/uL (1.40-6.50); %Basophils 0.4 % (0.0-1.0); %Eosinophils 3.1 % (0.0-10.0); %Lymphocytes 21.2 % (21.0-51.0); %Monocytes 14.2 % (0.0-10.0); %Neutrophils 61.2 % (42.0-75.0); Hemoglobin 11.1 g/dL (14.0-18.0); Mean Corpuscular HGB CONC 33.8 g/dL (32.0-36.0); Mean Corpuscular Hemoglobin 33.5 pg (27.0-31.0); Mean Corpuscular Volume 99.1 fL (78.0-98.0); Mean Platelet Volume 6.6 fL (7.4-10.4); Platelet Count 178 thou/uL (130-400); RBC Distribution Width 12.4 % (11.5-14.5); White Blood Cell (WBC) Count 9.5 thou/uL (4.8-10.8)
[2020-02-10 06:15] LABS: ALT (SGPT) 29 U/L (8-55); AST (SGOT) 31 U/L (5-34); Albumin 3.3 g/dL (3.4-4.8); Alkaline Phosphatase 53 U/L (40-110); Anion Gap 11 mmol/L (10-20); BUN (Urea Nitrogen) 15 mg/dL (8.4-25.7); Bilirubin, Total 1.3 mg/dL (0.2-1.2); Calc. Creatinine Clearance 95 mL/min (70-130); Calcium 8.2 mg/dL (7.8-10.44); Carbon Dioxide 23 mmol/L (23-31); Chloride 102 mmol/L (98-107); Estimated GFR-MDRD Greater than 90; Globulin 2.4 g/dL (2.4-3.5); Glucose 90 mg/dL (83-110); Potassium 4.2 mmol/L (3.5-5.1); Protein, Total 5.7 g/dL (5.8-8.1); Sodium 132 mmol/L (136-145)
[2020-02-10] MEDS: Amlodipine 5 MG TAB PO SCH (09:15)
[2020-02-10] MEDS: Famotidine 20 MG TAB PO SCH ×2 (09:15→20:03)
[2020-02-10] MEDS: Enoxaparin Sodium 30 MG/0.3 ML SYRINGE SC SCH (09:16)
[2020-02-10] MEDS: Pancrelipase DR 12,000 1 CAP PO SCH (09:16)
[2020-02-10] MEDS: Polyethylene Glycol 3350 17 GM Packet PO SCH (09:22)
[2020-02-10] MEDS: Senokot S 8.6-50 MG TAB PO SCH ×2 (09:28→20:03)
[2020-02-10] MEDS ORDERED: Tamsulosin HCl 0.4 MG CAP PO SCH (16:15)
[2020-02-10] MEDS: Atorvastatin Calcium 20 MG TAB PO SCH (20:04)
[2020-02-11] MEDS: traMADol HCl 50 MG TAB PO SCH ×5 (04:09→21:16)
--- NOTE | 2020-02-11 04:22 | PRG ---
DATE OF SERVICE: 02/10/2020 SUBJECTIVE: The patient was seen this evening during rounds. He was lying in bed, resting comfortably with no signs of acute distress. Trauma is seeing the patient for Dr. Medina while he is off. Nursing reported no acute events. OBJECTIVE: VITAL SIGNS: Temperature 98.1, pulse 89, respirations 16, oxygen saturation 95% on room air, and blood pressure 145/83. GENERAL: Well-appearing elderly male, sitting up in bed, resting comfortably and asleep with no signs of acute distress. PULMONARY: Equal chest rise and fall. No signs of acute respiratory distress. ASSESSMENT: Postop day 2 status post open cholecystectomy for cholecystitis. PLAN: Continue current full liquid diet. Continue ambulating as much as possible. Monitor for return of bowel function. The patient having intermittent issues with voiding. Continue to monitor closely. Trauma will continue to see the patient until Dr. Medina returns. Job ID: [id number]
[2020-02-11 05:26] LABS: %Lymphocytes 17.7 % (21.0-51.0); %Neutrophils 65.5 % (42.0-75.0); Hemoglobin 11.7 g/dL (14.0-18.0); Mean Corpuscular HGB CONC 33.6 g/dL (32.0-36.0); Mean Corpuscular Hemoglobin 32.6 pg (27.0-31.0); Mean Corpuscular Volume 97.2 fL (78.0-98.0); Mean Platelet Volume 6.5 fL (7.4-10.4); Platelet Count 206 thou/uL (130-400); RBC Distribution Width 12.1 % (11.5-14.5)
[2020-02-11 05:27] LABS: #Eosinphils 0.3 thou/uL (0.0-0.7); #Lymphocytes 1.8 thou/uL (1.20-3.40); #Monocytes 1.3 thou/uL (0.11-0.59); #Neutrophils 6.5 thou/uL (1.40-6.50); %Basophils 0.5 % (0.0-1.0); %Eosinophils 3.4 % (0.0-10.0); %Monocytes 12.9 % (0.0-10.0)
[2020-02-11] MEDS: Ondansetron PF 4 MG/2 ML Vial IVP PRN ×3 (05:50→20:50)
[2020-02-11 05:56] LABS: Anion Gap 12 mmol/L (10-20); BUN (Urea Nitrogen) 11 mg/dL (8.4-25.7); Calc. Creatinine Clearance 105 mL/min (70-130); Calcium 8.8 mg/dL (7.8-10.44); Carbon Dioxide 26 mmol/L (23-31); Chloride 98 mmol/L (98-107); Estimated GFR-MDRD Greater than 90; Glucose 90 mg/dL (83-110); Phosphorus 2.9 mg/dL (2.3-4.7); Potassium 4.3 mmol/L (3.5-5.1); Sodium 132 mmol/L (136-145)
[2020-02-11] MEDS: Sodium Chloride 0.9% 1,000 ML IV SCH ×2 (06:50→14:03)
[2020-02-11] MEDS: Famotidine 20 MG TAB PO SCH ×3 (08:22→21:16)
[2020-02-11] MEDS: Pancrelipase DR 12,000 1 CAP PO SCH (08:22)
[2020-02-11] MEDS: Senokot S 8.6-50 MG TAB PO SCH ×3 (08:22→21:16)
[2020-02-11] MEDS: Polyethylene Glycol 3350 17 GM Packet PO SCH (08:24)
[2020-02-11] MEDS: Enoxaparin Sodium 30 MG/0.3 ML SYRINGE SC SCH (08:24)
[2020-02-11] MEDS: Amlodipine 5 MG TAB PO SCH (08:24)
[2020-02-11] MEDS ORDERED: Fleet Enema 133 ML BOT PR SCH (09:15)
--- NOTE | 2020-02-11 09:33 | PRG ---
DATE OF SERVICE: 02/11/2020 SUBJECTIVE: The patient feels very uncomfortable. He is very bloated. He has had some nausea and vomiting. He has not passed anything on his bottom. OBJECTIVE: VITAL SIGNS: On examination, his temperature is 98.4, pulse 85, blood pressure 124/80. GENERAL: He looks uncomfortable. ABDOMEN: Tight and distended. Incisions are okay. Some moderate ecchymosis. LABORATORY DATA: His white count is 10, H/H 11/35, and platelet count 206. Electrolytes are fine. ASSESSMENT: Ileus versus obstruction. PLAN: We will try Fleets enema. Check a KUB. put back on n.p.o. status. Job ID: [id number]
[2020-02-11] MEDS: D5 1/2 NS w/20 mEq KCL 1,000 ML IV SCH ×2 (10:26→17:57)
--- NOTE | 2020-02-11 12:38 | RAD ---
Abdomen one view HISTORY: Abdominal pain and distention. Prior surgery. COMPARISON: 04/04/2018. FINDINGS: Gaseous distention of the colon and stomach. Large amount of stool overlies the colon, prateek cially on the right. Small bowel gas pattern is nonspecific. Metallic clips overlie the gallbladder fossa. Oblique skin staple row over the right upper quadrant. Degenerative changes lumbar spine and hips. Arterial and venous calcifications project over the pelvi s. IMPRESSION : Constipation. No findings of small bowel obstruction. Recent postoperative changes right quadrant. Atherosclerosis.
[2020-02-11] MEDS ORDERED: MINERAL OIL 30 ML UDCUP PO SCH (16:30)
[2020-02-11] MEDS ORDERED: Magnesium Citrate 300 ML BOT PO SCH (17:00)
[2020-02-11] MEDS: Atorvastatin Calcium 20 MG TAB PO SCH ×2 (20:40→20:48)
[2020-02-11] MEDS ORDERED: Tamsulosin HCl 0.4 MG CAP PO SCH (21:00)
[2020-02-12] MEDS: traMADol HCl 50 MG TAB PO SCH ×3 (06:40→14:24)
[2020-02-12] MEDS: D5 1/2 NS w/20 mEq KCL 1,000 ML IV SCH ×3 (06:40→16:01)
--- NOTE | 2020-02-12 08:26 | PRG ---
DATE OF SERVICE: 02/12/2020 SUBJECTIVE: The patient says that he had a rough night. He had a lot of nausea. He had not had any more bowel activity since the enema. OBJECTIVE: VITAL SIGNS: His temperature is 98.1, pulse 70, and blood pressure 135/82. ABDOMEN: Tight and distended. The incision looks okay. LABORATORY DATA: His white count is okay. His electrolytes are okay. His KUB showed a colonic impaction. ASSESSMENT: Colonic impaction. PLAN: Repeat [employer] today. Ambulate. Job ID: [id number]
[2020-02-12] MEDS: Ondansetron PF 4 MG/2 ML Vial IVP PRN (08:32)
[2020-02-12] MEDS: Polyethylene Glycol 3350 17 GM Packet PO SCH (08:33)
[2020-02-12] MEDS: Enoxaparin Sodium 30 MG/0.3 ML SYRINGE SC SCH (08:33)
[2020-02-12] MEDS: Fleet Enema 133 ML BOT PR PRN ×3 (10:51→14:05)
[2020-02-12] MEDS: Famotidine 20 MG TAB PO SCH (11:06)
[2020-02-12] MEDS: Amlodipine 5 MG TAB PO SCH (11:06)
[2020-02-12] MEDS: Senokot S 8.6-50 MG TAB PO SCH (12:28)
[2020-02-12] MEDS: Pancrelipase DR 12,000 1 CAP PO SCH (12:30)
[2020-02-12 17:04] VITALS: BP 123/76; TEMP 98.1
== END 2020-02-12 18:38 | disposition home or self-care (01) | DRG 415 ==
LOC: SDC 07:01 → SJJU 10:36
PROVIDERS: ADMIT Surgery; ATTEND Surgery
PROC: 0FT40ZZ Resection of Gallbladder, Open Approach (ICD-10-PCS; principal; 2020-02-08)
PROC: 0FJ44ZZ Inspection of Gallbladder, Percutaneous Endoscopic Approach (ICD-10-PCS; 2020-02-08)
DX: K81.0 Acute cholecystitis (principal); K56.49 Other impaction of intestine; K81.1 Chronic cholecystitis; Z20.828 Contact with and (suspected) exposure to other viral communicable diseases; M19.90 Unspecified osteoarthritis, unspecified site; I10 Essential (primary) hypertension; E78.5 Hyperlipidemia, unspecified; I25.10 Atherosclerotic heart disease of native coronary artery without angina pectoris; J30.9 Allergic rhinitis, unspecified; K66.0 Peritoneal adhesions (postprocedural) (postinfection); K82.8 Other specified diseases of gallbladder; Z79.82 Long term (current) use of aspirin; Z79.899 Other long term (current) drug therapy; Z87.891 Personal history of nicotine dependence; Z88.0 Allergy status to penicillin; Z88.5 Allergy status to narcotic agent; Z91.040 Latex allergy status
CPT/HCPCS: 36415; 74018; 80048; 80053; 80076; 83690; 83735; 84100; 85025; 87635; 88304; 93005; J1650; J1885; J1956; J2405; J2704; J3010; J3475; J3480; J7050; S0020; S0028; U0003

== ENCOUNTER 2020-09-01 12:17 | Emergency (ER) | payer MEDICARE ==
[2020-09-01 13:11] LABS: #Eosinphils 0.1 thou/uL (0.0-0.7); #Lymphocytes 1.1 thou/uL (1.20-3.40); #Monocytes 0.6 thou/uL (0.11-0.59); #Neutrophils 5.5 thou/uL (1.40-6.50); %Basophils 0.6 % (0.0-1.0); %Lymphocytes 15.5 % (21.0-51.0); %Monocytes 7.9 % (0.0-10.0); Hemoglobin 12.8 g/dL (14.0-18.0); Mean Corpuscular HGB CONC 33.5 g/dL (32.0-36.0); Mean Corpuscular Hemoglobin 33.3 pg (27.0-31.0); Mean Corpuscular Volume 99.4 fL (78.0-98.0); Mean Platelet Volume 6.5 fL (7.4-10.4); Platelet Count 225 thou/uL (130-400); RBC Distribution Width 12.2 % (11.5-14.5); Red Blood Cell (RBC) Count 3.86 mill/uL (4.70-6.10); White Blood Cell (WBC) Count 7.3 thou/uL (4.8-10.8)
[2020-09-01 13:30] LABS: ALT (SGPT) 22 U/L (8-55); AST (SGOT) 26 U/L (5-34); Alkaline Phosphatase 55 U/L (40-110); Anion Gap 13 mmol/L (10-20); BUN (Urea Nitrogen) 15 mg/dL (8.4-25.7); Calc. Creatinine Clearance 0 mL/min (70-130); Carbon Dioxide 22 mmol/L (23-31); Chloride 105 mmol/L (98-107); Globulin 2.6 g/dL (2.4-3.5); Glucose 129 mg/dL (83-110); Lipase 9 U/L (8-78); Potassium 3.9 mmol/L (3.5-5.1); Protein, Total 6.6 g/dL (5.8-8.1); Sodium 136 mmol/L (136-145)
[2020-09-01 15:58] LABS: Troponin I Less than 0.010 ng/mL (< 0.028)
[2020-09-01 16:22] LABS: Bilirubin Negative (Negative); Blood, Urine Negative (Negative); Glucose, Urine (Dipstick) Negative (Negative); Ketone, Urine Trace mg/dL (Negative); Leukocyte Negative (Negative); Nitrite Negative (Negative); Protein, Urine (Dipstick) Negative (Neg-Trace); Specific Gravity, Urine 1.015 (1.005-1.030); Urobilinogen 0.2 mg/dL (Less than 2)
[2020-09-01 16:25] LABS: Clarity Clear (Clear)
[2020-09-01 16:27] LABS: Bacteria/HPF None Seen HPF (None Seen); RBC/HPF 0-3 HPF (0-3); Squamous Epithelial None Seen HPF (0-3)
== END 2020-09-01 16:29 | disposition home or self-care (01) ==
LOC: ERS 12:17
DX: E86.0 Dehydration (principal); E78.5 Hyperlipidemia, unspecified; E78.00 Pure hypercholesterolemia, unspecified; I10 Essential (primary) hypertension; Z79.01 Long term (current) use of anticoagulants; Z79.899 Other long term (current) drug therapy
CPT/HCPCS: 36415; 71045; 80053; 81003; 83690; 84484; 85025; 93005

== ENCOUNTER 2022-02-02 08:12 | Observation (INO) | payer MEDICARE, OTHER ==
[2022-02-02] MEDS ORDERED: Ondansetron PF 4 MG/2 ML Vial ONE (08:46)
[2022-02-02 09:08] LABS: Hemoglobin 13.6 g/dL (14.0-18.0); Mean Corpuscular HGB CONC 33.1 g/dL (32.0-36.0); Mean Corpuscular Hemoglobin 32.9 pg (27.0-31.0); Mean Corpuscular Volume 99.6 fl (78.0-98.0); Mean Platelet Volume 6.3 fL (7.4-10.4); Platelet Count 208 10x3/uL (130-400); RBC Distribution Width 11.8 % (11.5-14.5); Red Blood Cell (RBC) Count 4.14 mill/uL (4.70-6.10); White Blood Cell (WBC) Count 5.9 10x3/uL (4.8-10.8)
[2022-02-02 09:24] LABS: ALT (SGPT) 25 U/L (8-55); AST (SGOT) 21 U/L (5-34); Alkaline Phosphatase 64 U/L (40-110); Anion Gap 10 mmol/L (10-20); BUN (Urea Nitrogen) 11 mg/dL (8.4-25.7); Band 6 % (5-11); Calc. Creatinine Clearance 0 mL/min (70-130); Calcium 8.7 mg/dL (7.8-10.44); Carbon Dioxide 25 mmol/L (23-31); Chloride 101 mmol/L (98-107); Estimated GFR 85; Globulin 2.7 g/dL (2.4-3.5); Glucose 124 mg/dL (83-110); Lymphocytes 12 % (21-51); MDiff Complete? YES; Monocytes 16 % (0-10); Neutrophil 66 % (42-75); Potassium 4.1 mmol/L (3.5-5.1); Protein, Total 6.7 g/dL (5.8-8.1); RBC Morphology Normal; Sodium 132 mmol/L (136-145)
[2022-02-02] MEDS ORDERED: Aspirin 81 mg Enteric Coated Tablet ONE (10:21)
[2022-02-02 10:30] LABS: SARS-CoV-2 NAA Rapid Test DETECTED (NotDetected)
[2022-02-02] MEDS ORDERED: Ondansetron PF 4 MG/2 ML Vial IVP PRN (10:50)
[2022-02-02] MEDS ORDERED: Acetaminophen 325 MG TAB PO PRN (10:50)
[2022-02-02 10:53] LABS: Bilirubin Negative (Negative); Blood, Urine Negative (Negative); Clarity Clear (Clear); Glucose, Urine (Dipstick) Normal (Negative); Ketone, Urine Negative (Negative); Leukocyte Negative Leu/uL (Negative); Nitrite Negative (Negative); Protein, Urine (Dipstick) 10 mg/dL (Neg-Trace); Specific Gravity, Urine 1.018 (1.002-1.036)
[2022-02-02 12:01] VITALS: BMI 27.0
[2022-02-02 12:56] LABS: Troponin I Less than 0.010 ng/mL (< 0.028)
[2022-02-02 15:51] LABS: Troponin I 0.014 ng/mL (< 0.028)
[2022-02-02] MEDS ORDERED: Atorvastatin Calcium 20 MG TAB PO SCH (21:00)
[2022-02-02] MEDS: NIRMATRELVIR 150 MG/RITONAVIR 100 MG PO SCH (21:02)
[2022-02-02] MEDS: Apixaban 5 MG TAB PO SCH (21:03)
[2022-02-03 05:50] LABS: Anion Gap 11 mmol/L (10-20); BUN (Urea Nitrogen) 12 mg/dL (8.4-25.7); Calc. Creatinine Clearance 82 mL/min (70-130); Calcium 9.3 mg/dL (7.8-10.44); Carbon Dioxide 27 mmol/L (23-31); Chloride 97 mmol/L (98-107); Estimated GFR 85; Glucose 97 mg/dL (83-110); Sodium 131 mmol/L (136-145)
[2022-02-03 07:45] VITALS: BP 116/83; TEMP 97.9
[2022-02-03] MEDS: Apixaban 5 MG TAB PO SCH (09:10)
[2022-02-03] MEDS: NIRMATRELVIR 150 MG/RITONAVIR 100 MG PO SCH (09:14)
[2022-02-03 09:46] LABS: Band 3 % (5-11); Hemoglobin 14.5 g/dL (14.0-18.0); Lymphocytes 17 % (21-51); MDiff Complete? YES; Mean Corpuscular HGB CONC 32.8 g/dL (32.0-36.0); Mean Corpuscular Hemoglobin 32.8 pg (27.0-31.0); Mean Corpuscular Volume 99.8 fl (78.0-98.0); Mean Platelet Volume 6.6 fL (7.4-10.4); Metamyelocyte 1 % (0-0); Monocytes 28 % (0-10); Neutrophil 45 % (42-75); Platelet Count 209 10x3/uL (130-400); Platelet Morphology Comment Appears Adequate; RBC Morphology Normal; Reactive Lymphocytes 6 % (0-10); Red Blood Cell (RBC) Count 4.43 mill/uL (4.70-6.10); White Blood Cell (WBC) Count 5.9 10x3/uL (4.8-10.8)
== END 2022-02-03 11:22 | disposition left against medical advice (07) ==
LOC: ERS 08:12 → 2SW 11:35
PROVIDERS: ADMIT Internal Medicine; ATTEND Internal Medicine
DX: R55 Syncope and collapse (principal); U07.1 COVID-19; E87.1 Hypo-osmolality and hyponatremia; I48.91 Unspecified atrial fibrillation; E78.00 Pure hypercholesterolemia, unspecified; I10 Essential (primary) hypertension; G62.9 Polyneuropathy, unspecified; D64.9 Anemia, unspecified; R01.1 Cardiac murmur, unspecified; Z53.29 Procedure and treatment not carried out because of patient's decision for other reasons; Z79.01 Long term (current) use of anticoagulants; Z79.899 Other long term (current) drug therapy; Z88.0 Allergy status to penicillin; Z88.5 Allergy status to narcotic agent; Z91.040 Latex allergy status
CPT/HCPCS: 0240U; 70450; 71045; 80048; 80053; 81003; 84484 ×2; 85025 ×2; 93005; 96374; 99285; 36415; G0378; J2405

== ENCOUNTER 2022-05-20 08:54 | Outpatient (CLI) | payer MEDICARE | END 2022-05-20 08:55 | disposition home or self-care (01) | LOC: LABBT 08:54 | PROVIDERS: ATTEND Internal Medicine Cardiovascular Disease | DX: Z01.818 Encounter for other preprocedural examination (principal); I48.0 Paroxysmal atrial fibrillation | CPT/HCPCS: 80053; 81003; 85027; 85610; 85730; 86850; 86900; 86901; 93005; 93010 ==

== ENCOUNTER 2022-05-20 10:30 | Inpatient (IN) | payer MEDICARE ==
[2022-05-20 10:24] LABS: Bilirubin Neg (Negative); Blood, Urine Negative (Negative); Clarity Slightly Cloudy (Clear); Glucose, Urine (Dipstick) Normal (Negative); Ketone, Urine Negative (Negative); Leukocyte Negative (Negative); Nitrite Negative (Negative); Protein, Urine (Dipstick) Negative (Neg-Trace); Specific Gravity, Urine 1.005 (1.005-1.030); Urobilinogen Normal mg/dL (Less than 2)
[2022-05-20 10:24] LABS: Hemoglobin 12.9 g/dL (13.5-17.5); Mean Corpuscular HGB CONC 33.3 g/dL (32.0-36.0); Mean Corpuscular Hemoglobin 32.3 pg (27.0-33.0); Mean Corpuscular Volume 96.8 fl (81.2-95.1); Mean Platelet Volume 8.8 fl (7.4-10.4); Platelet Count 212 10x3/uL (150-450); RBC Distribution Width 13.2 % (11.5-14.5); White Blood Cell (WBC) Count 5.9 10x3/uL (3.5-10.5)
[2022-05-20 10:40] LABS: INR-International Normal Ratio 1.1; PTT 28.4 sec (22.0-33.0); Prothrombin Time 11.9 sec (9.5-12.1)
[2022-05-20 10:44] LABS: ALT (SGPT) 23 U/L (8-55); AST (SGOT) 27 U/L (5-34); Albumin 4.4 g/dL (3.4-4.8); Alkaline Phosphatase 56 U/L (40-110); Anion Gap 11 mmol/L (10-20); BUN (Urea Nitrogen) 15 mg/dL (8.4-25.7); Bilirubin, Total 1.1 mg/dL (0.2-1.2); Calc. Creatinine Clearance 0 mL/min (70-130); Calcium 9.1 mg/dL (7.8-10.44); Carbon Dioxide 24 mmol/L (23-31); Chloride 101 mmol/L (98-107); Estimated GFR 81; Globulin 2.4 g/dL (2.4-3.5); Glucose 92 mg/dL (83-110); Potassium 4.4 mmol/L (3.5-5.1); Protein, Total 6.8 g/dL (5.8-8.1); Sodium 132 mmol/L (136-145)
[2022-05-26] MEDS ORDERED: Heparin 10,000 UNITS/ 10 ML VIAL ONE (07:47)
[2022-05-26] MEDS ORDERED: Clindamycin/D5W 900 mg/50 ml Premix Bag ONE (07:47)
[2022-05-26] MEDS ORDERED: Protamine Sulfate 50 MG/5 ML VIAL ONE (07:47)
[2022-05-26] MEDS ORDERED: FENTANYL 50 MCG/ML 1 ML VIAL ONE (09:21)
[2022-05-26] MEDS ORDERED: SUGAMMADEX SODIUM 200 MG/2 ML VIAL ONE (09:21)
[2022-05-26] MEDS ORDERED: Dexamethasone 20 MG/5 ML VIAL ONE (09:55)
[2022-05-26] MEDS ORDERED: Rocuronium Bromide 10 MG/ML (10ML VIAL) ONE (09:55)
[2022-05-26] MEDS ORDERED: Ondansetron PF 4 MG/2 ML Vial ONE ×2 (09:55→13:43)
[2022-05-26] MEDS ORDERED: PROPOFOL 200 MG/20 ML VIAL ONE (09:55)
[2022-05-26] MEDS ORDERED: Lidocaine 1% PF 5 ML VIAL ONE (09:55)
[2022-05-26] MEDS ORDERED: Rocuronium Bromide 50 MG/5 ML VIAL ONE (11:42)
[2022-05-26 14:01] LABS: SARS-CoV-2 NAA Rapid Test Not Detected (NotDetected)
[2022-05-26] MEDS ORDERED: Azelastine 137 MCG/Spray 30 ML NS PRN (14:48)
[2022-05-26] MEDS ORDERED: Acetaminophen/Codeine 30-300mg Tablet PO PRN ×2 (15:00)
[2022-05-26] MEDS ORDERED: Iopamidol 370 76% 100 ML VIAL ONE (17:07)
[2022-05-26 17:30] VITALS: BMI 3956.1
[2022-05-26] MEDS ORDERED: Atorvastatin Calcium 20 MG TAB PO SCH (21:00)
[2022-05-26] MEDS: Apixaban 5 MG TAB PO SCH (21:03)
[2022-05-27] MEDS ORDERED: Pancrelipase DR 12,000 1 CAP PO SCH (07:30)
[2022-05-27] MEDS ORDERED: Polyethylene Glycol 3350 17 GM Packet PO SCH (09:00)
[2022-05-27] MEDS ORDERED: Calcium Carbonate 600 MG + Vit D TAB PO SCH (09:00)
[2022-05-27] MEDS ORDERED: Amlodipine 5 MG TAB PO SCH (09:00)
[2022-05-27] MEDS: Apixaban 5 MG TAB PO SCH (09:26)
[2022-05-27 10:40] VITALS: BP 135/82; TEMP 97.8
== END 2022-05-27 12:13 | disposition home or self-care (01) | DRG 274 ==
LOC: SURG A 05-26 07:17 → 2NO 05-26 16:46
PROVIDERS: ADMIT Internal Medicine Cardiovascular Disease; ATTEND Internal Medicine Cardiovascular Disease
PROC: 02L73DK Occlusion of Left Atrial Appendage with Intraluminal Device, Percutaneous Approach (ICD-10-PCS; principal; 2022-05-26)
PROC: B24BZZ4 Ultrasonography of Heart with Aorta, Transesophageal (ICD-10-PCS; 2022-05-26)
DX: I48.20 Chronic atrial fibrillation, unspecified (principal); Z00.6 Encounter for examination for normal comparison and control in clinical research program; Z20.822 Contact with and (suspected) exposure to COVID-19; I25.10 Atherosclerotic heart disease of native coronary artery without angina pectoris; K21.9 Gastro-esophageal reflux disease without esophagitis; E78.5 Hyperlipidemia, unspecified; I10 Essential (primary) hypertension; I35.0 Nonrheumatic aortic (valve) stenosis; I49.3 Ventricular premature depolarization; Z96.659 Presence of unspecified artificial knee joint; Z88.0 Allergy status to penicillin; Z88.5 Allergy status to narcotic agent; Z79.01 Long term (current) use of anticoagulants; Z82.3 Family history of stroke; Z79.899 Other long term (current) drug therapy; Z90.49 Acquired absence of other specified parts of digestive tract; Z98.890 Other specified postprocedural states; Z95.0 Presence of cardiac pacemaker
CPT/HCPCS: 33340; 80053; 81003; 85027; 85347; 85610; 85730; 86850; 86900; 86901; 93306; 93312; C1759; C1760; C1769; C1817; C1894; J1100; J1644; J2405; J2704; J2720; J3010; J3490; Q9967; U0002

== ENCOUNTER 2022-07-16 09:53 | Day surgery (SDC) | payer MEDICARE ==
[2022-07-15 10:17] VITALS: BMI 27.8
[2022-07-16 10:59] LABS: Hemoglobin 13.8 g/dL (14.0-18.0); Mean Corpuscular HGB CONC 34.4 g/dL (32.0-36.0); Mean Corpuscular Hemoglobin 34.3 pg (27.0-31.0); Mean Corpuscular Volume 99.9 fl (78.0-98.0); Mean Platelet Volume 6.4 fL (7.4-10.4); Platelet Count 205 10x3/uL (130-400); Red Blood Cell (RBC) Count 4.02 mill/uL (4.70-6.10); White Blood Cell (WBC) Count 6.5 10x3/uL (4.8-10.8)
[2022-07-16 11:19] LABS: Anion Gap 14 mmol/L (10-20); BUN (Urea Nitrogen) 14 mg/dL (8.4-25.7); Calc. Creatinine Clearance 85 mL/min (70-130); Calcium 9.5 mg/dL (7.8-10.44); Carbon Dioxide 22 mmol/L (23-31); Chloride 100 mmol/L (98-107); Estimated GFR 85; Glucose 105 mg/dL (83-110); Sodium 132 mmol/L (136-145)
== END 2022-07-16 15:14 | disposition home or self-care (01) ==
LOC: SDC 09:53
PROVIDERS: ATTEND Internal Medicine Cardiovascular Disease
PROC: B246ZZ4 Ultrasonography of Right and Left Heart, Transesophageal (ICD-10-PCS; principal; 2022-07-16)
DX: I48.11 Longstanding persistent atrial fibrillation (principal); I08.3 Combined rheumatic disorders of mitral, aortic and tricuspid valves; I11.9 Hypertensive heart disease without heart failure; I49.3 Ventricular premature depolarization; K21.9 Gastro-esophageal reflux disease without esophagitis; E78.5 Hyperlipidemia, unspecified; Z79.01 Long term (current) use of anticoagulants; Z79.899 Other long term (current) drug therapy; Z88.0 Allergy status to penicillin; Z88.5 Allergy status to narcotic agent; Z91.048 Other nonmedicinal substance allergy status; Z95.0 Presence of cardiac pacemaker; Z95.818 Presence of other cardiac implants and grafts
CPT/HCPCS: 36415; 80048; 85027; 93005; 93010; 93312

== ENCOUNTER 2023-05-08 08:55 | Emergency (ER) | payer MEDICARE ==
[2023-05-08 09:41] LABS: Hematocrit 39.3 % (42.0-52.0); Hemoglobin 13.5 g/dL (14.0-18.0); Manual Diff?? YES; Mean Corpuscular HGB CONC 34.4 g/dL (32.0-36.0); Mean Corpuscular Hemoglobin 33.4 pg (27.0-31.0); Mean Corpuscular Volume 97.3 fl (78.0-98.0); Mean Platelet Volume 8.8 fL (7.4-10.4); Platelet Count 186 10x3/uL (130-400); RBC Distribution Width 13.2 % (11.5-14.5); Red Blood Cell (RBC) Count 4.04 mill/uL (4.70-6.10); White Blood Cell (WBC) Count 3.3 10x3/uL (4.8-10.8)
[2023-05-08 09:42] LABS: Delete Auto Diff?? YES
[2023-05-08 10:01] LABS: ALT (SGPT) 25 U/L (8-55); AST (SGOT) 35 U/L (5-34); Albumin 4.2 g/dL (3.4-4.8); Alkaline Phosphatase 65 U/L (40-110); Anion Gap 11 mmol/L (10-20); BUN (Urea Nitrogen) 17 mg/dL (8.4-25.7); Bilirubin, Total 0.6 mg/dL (0.2-1.2); Calc. Creatinine Clearance 0 mL/min (70-130); Calcium 9.3 mg/dL (7.8-10.44); Carbon Dioxide 27 mmol/L (23-31); Chloride 99 mmol/L (98-107); Estimated GFR 84; Glucose 134 mg/dL (83-110); Magnesium 1.7 mg/dL (1.6-2.6); Potassium 3.9 mmol/L (3.5-5.1); Protein, Total 7.2 g/dL (5.8-8.1); Sodium 133 mmol/L (136-145)
[2023-05-08 10:02] LABS: Anisocytosis SLIGHT = 6-15 cells HPF (0-5); Band 1 % (5-11); CellaVision Operator ID lab.dlt; Eosinophils 3 % (0-10); Lymphocytes 25 % (21-51); Monocytes 18 % (0-10); Neutrophil 42 % (42-75); Platelet Adequacy Comment Platelets Normal; Poikilocytosis SLIGHT = 6-15 cells HPF (0-5); Reactive Lymphocytes 11 % (0-10); Total Cell Count 100
[2023-05-08 10:14] LABS: Troponin I Less than 0.010 ng/mL (< 0.028)
[2023-05-08 10:33] LABS: SARS-CoV-2 NAA Rapid Test Not Detected (NotDetected)
== END 2023-05-08 13:45 | disposition home or self-care (01) ==
LOC: ERS 08:55
DX: R55 Syncope and collapse (principal); J10.1 Influenza due to other identified influenza virus with other respiratory manifestations; E78.00 Pure hypercholesterolemia, unspecified; I10 Essential (primary) hypertension; I35.0 Nonrheumatic aortic (valve) stenosis; Z95.0 Presence of cardiac pacemaker; Z79.82 Long term (current) use of aspirin; Z79.899 Other long term (current) drug therapy
CPT/HCPCS: 0240U; 71045; 80053; 83735; 84484; 85025; 93005; 94760; 96360; 96361; 99284; 36415

== ENCOUNTER 2023-05-26 07:00 | Inpatient (IN) | payer MEDICARE ==
[2023-05-26 07:55] LABS: Hematocrit 38.2 % (38.8-50.0); Hemoglobin 13.6 g/dL (13.5-17.5); Mean Corpuscular HGB CONC 35.6 g/dL (32.0-36.0); Mean Corpuscular Hemoglobin 33.9 pg (27.0-33.0); Mean Corpuscular Volume 95.3 fl (81.2-95.1); Mean Platelet Volume 8.7 fl (7.4-10.4); Platelet Count 213 10x3/uL (150-450); RBC Distribution Width 13.4 % (11.5-14.5); Red Blood Cell (RBC) Count 4.01 10x6/uL (4.32-5.72)
[2023-05-26 08:35] LABS: Anion Gap 11 mmol/L (10-20); BUN (Urea Nitrogen) 15 mg/dL (8.4-25.7); Calc. Creatinine Clearance 0 mL/min (70-130); Calcium 9.4 mg/dL (7.8-10.44); Carbon Dioxide 26 mmol/L (23-31); Chloride 99 mmol/L (98-107); Estimated GFR 82; Glucose 102 mg/dL (83-110); Potassium 4.1 mmol/L (3.5-5.1); Sodium 132 mmol/L (136-145)
[2023-05-27] MEDS ORDERED: Vancomycin 1 GM/200 ML (FROZEN) BAG ONE (06:27)
[2023-05-27] MEDS ORDERED: Lidocaine 1% MPF 2 ML VIAL ONE (06:27)
[2023-05-27] MEDS ORDERED: Albumin 5% 500 ML ONE (06:34)
[2023-05-27] MEDS ORDERED: Papaverine 60 MG/2 ML VIAL ONE ×2 (06:49→07:39)
[2023-05-27] MEDS ORDERED: PHENYLEPHRINE-NS 100 MCG/ML 10 ML SYRINGE ONE ×2 (06:56→10:58)
[2023-05-27] MEDS ORDERED: Fentanyl 250 MCG/5 ML VIAL ONE (06:56)
[2023-05-27] MEDS ORDERED: Midazolam HCl 2 mg/2 ml Vial ONE (06:56)
[2023-05-27] MEDS ORDERED: Lidocaine 2% PF 100 mg/5 ml Syringe ONE ×2 (06:56→07:39)
[2023-05-27] MEDS ORDERED: Lidocaine 2% PF 5 ML VIAL ONE (06:56)
[2023-05-27] MEDS ORDERED: Sodium Chloride 0.9% 250 ML 250 ML ONE (06:56)
[2023-05-27] MEDS ORDERED: Rocuronium Bromide 10 MG/ML (10ML VIAL) ONE (06:56)
[2023-05-27] MEDS ORDERED: PROPOFOL 20 ML ONE (06:56)
[2023-05-27] MEDS ORDERED: CEFAZOLIN 1 GM VIAL ONE (06:56)
[2023-05-27] MEDS ORDERED: Norepinephrine 4 MG/4 ML VIAL ONE (06:56)
[2023-05-27] MEDS ORDERED: ePHEDrine Sulfate 50 MG/10 ML VIAL ONE (06:56)
[2023-05-27] MEDS ORDERED: Sevoflurane 250 ML INH ANEST BOTTLE ONE (06:57)
[2023-05-27] MEDS ORDERED: Magnesium 5 GM/10 ML VIAL ONE (07:39)
[2023-05-27] MEDS ORDERED: Thrombin 5000 UNITS/5 ML VIAL ONE (07:39)
[2023-05-27] MEDS ORDERED: Vancomycin 1 GM VIAL ONE (07:39)
[2023-05-27] MEDS ORDERED: Calcium Chloride 1 GM/10 ML Abboject SYRINGE ONE (07:39)
[2023-05-27] MEDS ORDERED: Albumin 25% 25 GM (100 mL) BOT ONE (07:39)
[2023-05-27] MEDS ORDERED: Heparin 30,000 units/30 ml VIAL ONE (07:39)
[2023-05-27] MEDS ORDERED: Aminocaproic Acid 5 GM/20 ML VIAL ONE (07:39)
[2023-05-27] MEDS ORDERED: Heparin 5,000 UNITS/ML VIAL ONE (07:39)
[2023-05-27] MEDS ORDERED: Sodium Bicarb 50 mEq/50 ML VIAL ONE (07:39)
[2023-05-27] MEDS ORDERED: Mannitol 12.5 GM/50 ML ONE (07:39)
[2023-05-27] MEDS ORDERED: Cardioplegic Soln 1,000 ML BAG ONE (07:39)
[2023-05-27] MEDS ORDERED: Potassium Chloride 60 mEq (30 mL) VIAL ONE (07:39)
[2023-05-27] MEDS ORDERED: Protamine Sulfate 250 MG/25 ML VIAL ONE (07:39)
[2023-05-27] MEDS ORDERED: Esmolol 100 MG/10 ML VIAL ONE (08:35)
[2023-05-27] MEDS ORDERED: Heparin 10,000 UNITS/ 10 ML VIAL ONE (08:35)
[2023-05-27] MEDS ORDERED: Mag-Al 1200 mg/1200 mg/30 ML UDCUP PO PRN (11:55)
[2023-05-27] MEDS ORDERED: DOPamine 400 MG/D5W 250 ML 250 ML IVPB PRN (11:55)
[2023-05-27] MEDS ORDERED: Bisacodyl 5 MG TAB PO PRN (11:55)
[2023-05-27] MEDS ORDERED: Guaifenesin DM 100-10/5 ML UDCUP PO PRN (11:55)
[2023-05-27] MEDS ORDERED: niCARdipine 25 MG in Sodium Chloride 0.9% 250 ML 250 ML IVPB PRN (11:55)
[2023-05-27] MEDS ORDERED: Albumin 5% 12.5 GM (250 mL) BOT IVPB PRN (11:55)
[2023-05-27] MEDS ORDERED: Hetastarch 6% 500 ML 500 ML IVPB PRN (11:55)
[2023-05-27] MEDS ORDERED: Bisacodyl 10 MG SUPP PR PRN (11:55)
[2023-05-27] MEDS ORDERED: Dextrose 50% Abboject 50 ML SYRINGE SLOW IVP PRN (12:00)
[2023-05-27] MEDS ORDERED: HUMULIN R 100 UNITS in Sodium Chloride 0.9% 100 ML IVPB SCH (12:00)
[2023-05-27] MEDS ORDERED: Glucagon 1 MG/ML KIT SC PRN (12:00)
[2023-05-27] MEDS ORDERED: Dextrose 5% in Water 1,000 ML IV PRN (12:00)
[2023-05-27] MEDS: Ketorolac Tromethamine 30 MG (1 mL) VIAL IVP SCH (12:33)
[2023-05-27] MEDS: Insulin Regular 300 UNITS/3 ML VIAL SC PRN (12:34)
[2023-05-27] MEDS: Post-Op Insulin Drip Protocol IVPB ONE (12:38)
[2023-05-27] MEDS: fentaNYL 50 mcg/mL 1 mL Vial SLOW IVP PRN (12:43)
[2023-05-27] MEDS: Albumin 5% 12.5 GM (250 mL) BOT IVPB PRN (12:50)
[2023-05-27 12:51] LABS: Actual Bicarbonate (HCO3a) 19.6 mEq/L (22-28); Base Excess (BEa) -4.6 mEq/L (-2.0 to +3.0); CO2 Tension 33.2 mmHg (35.0-45.0); Calcium, Ionized (arterial) 1.12 mmol/L (1.12-1.30); Carboxyhemoglobin (COHb) 0.3 gm% (0.0-3.0); Hematocrit-ABG 29 % (42.0-52.0); Hemoglobin (Hb) 9.9 g/dL (14.0-18.0); O2 Tension (PaO2), arterial 168.5 mmHg (> 60.0); Potassium - ABG Lab 3.96 mmol/L (3.70-5.30)
[2023-05-27 12:52] LABS: Puncture Site ALINE
[2023-05-27 12:55] LABS: #Eosinphils 0.1 thou/uL (0.0-0.7); #Monocytes 1.1 thou/uL (0.11-0.59); #Neutrophils 9.8 thou/uL (1.40-6.50); %Basophils 0.2 % (0.0-1.0); %Eosinophils 0.4 % (0.0-10.0); %Lymphocytes 8.2 % (21.0-51.0); %Monocytes 9.1 % (0.0-10.0); %Neutrophils 80.6 % (42.0-75.0); Hematocrit 27.4 % (42.0-52.0); Hemoglobin 9.3 g/dL (14.0-18.0); Mean Corpuscular HGB CONC 33.9 g/dL (32.0-36.0); Mean Corpuscular Hemoglobin 33.9 pg (27.0-31.0); Mean Platelet Volume 8.8 fL (7.4-10.4); Platelet Count 117 10x3/uL (130-400); RBC Distribution Width 13.8 % (11.5-14.5); Red Blood Cell (RBC) Count 2.74 mill/uL (4.70-6.10); White Blood Cell (WBC) Count 12.1 10x3/uL (4.8-10.8)
[2023-05-27] MEDS: NOREPINEPHRINE 8 MG/250 ML-D5W 250 ML IVPB PRN (12:57)
[2023-05-27 12:58] LABS: INR-International Normal Ratio 1.6; PTT 37.7 sec (22.9-36.1)
[2023-05-27 13:09] LABS: Anion Gap 11 mmol/L (10-20); BUN (Urea Nitrogen) 12 mg/dL (8.4-25.7); Calc. Creatinine Clearance 103 mL/min (70-130); Carbon Dioxide 18 mmol/L (23-31); Chloride 111 mmol/L (98-107); Estimated GFR 90; Glucose 146 mg/dL (83-110); Potassium 3.9 mmol/L (3.5-5.1); Sodium 136 mmol/L (136-145)
[2023-05-27] MEDS: Ondansetron PF 4 MG/2 ML Vial IVP PRN (13:30)
[2023-05-27] MEDS: Potassium Chloride 20 MEQ (100 mL) BAG IVPB PRN (13:32)
[2023-05-27] MEDS: Nitroglycerin 50 MG/250 ML BOT 250 ML IVPB PRN (13:32)
[2023-05-27 17:00] LABS: Actual Bicarbonate (HCO3a) 18.3 mEq/L (22-28); Base Excess (BEa) -5.8 mEq/L (-2.0 to +3.0); CO2 Tension 30.5 mmHg (35.0-45.0); Calcium, Ionized (arterial) 1.12 mmol/L (1.12-1.30); Carboxyhemoglobin (COHb) 0.9 gm% (0.0-3.0); Hematocrit-ABG 28 % (42.0-52.0); Hemoglobin (Hb) 9.5 g/dL (14.0-18.0); O2 Tension (PaO2), arterial 158.8 mmHg (> 60.0); pH, Arterial 7.395 (7.35-7.45)
[2023-05-27 17:02] LABS: ALV-art Gradient -161.275 mmHg (0-20); Puncture Site ALINE
[2023-05-27 18:01] LABS: Hematocrit 26.2 % (42.0-52.0)
[2023-05-27 18:20] LABS: Potassium 4.6 mmol/L (3.5-5.1)
[2023-05-27] MEDS: Ibuprofen 600 MG TAB PO PRN (18:32)
[2023-05-27] MEDS ORDERED: Lactated Ringer's 1,000 ML IV SCH (18:45)
[2023-05-27] MEDS: Vancomycin (BATCH) 1.5 GM in Premix 1 BAG IVPB SCH (18:47)
[2023-05-27] MEDS: Famotidine/PF 20 mg/2ml Vial SLOW IVP SCH (20:10)
[2023-05-27] MEDS: Atorvastatin Calcium 20 MG TAB PO SCH (20:10)
[2023-05-28 04:20] LABS: Hematocrit 19.6 % (42.0-52.0); Hemoglobin 6.8 g/dL (14.0-18.0); Manual Diff?? YES; Mean Corpuscular HGB CONC 34.7 g/dL (32.0-36.0); Mean Corpuscular Hemoglobin 33.8 pg (27.0-31.0); Mean Corpuscular Volume 97.5 fl (78.0-98.0); Mean Platelet Volume 9.2 fL (7.4-10.4); Platelet Count 122 10x3/uL (130-400); RBC Distribution Width 14.1 % (11.5-14.5); Red Blood Cell (RBC) Count 2.01 mill/uL (4.70-6.10); White Blood Cell (WBC) Count 7.5 10x3/uL (4.8-10.8)
[2023-05-28 04:37] LABS: Anion Gap 14 mmol/L (10-20); BUN (Urea Nitrogen) 19 mg/dL (8.4-25.7); Calc. Creatinine Clearance 83 mL/min (70-130); Calcium 8.5 mg/dL (7.8-10.44); Carbon Dioxide 19 mmol/L (23-31); Chloride 109 mmol/L (98-107); Estimated GFR 84; Glucose 143 mg/dL (83-110); Potassium 4.5 mmol/L (3.5-5.1); Sodium 137 mmol/L (136-145)
[2023-05-28 04:57] LABS: Delete Auto Diff?? YES
[2023-05-28 05:26] LABS: Band 1 % (5-11); CellaVision Operator ID lab.abc; Lymphocytes 13 % (21-51); Metamyelocyte 1 % (0-0); Monocytes 7 % (0-10); Myelocyte 1 % (0-0); Neutrophil 78 % (42-75); Platelet Adequacy Comment Platelets Decreased; RBC Morphology Within Normal Limits; Smudge Cells 19.4 %; Total Cell Count 103
[2023-05-28] MEDS: Aspirin 325 MG TAB PO SCH (09:11)
[2023-05-28] MEDS: Fluticasone Propionate Nasal Spray 16 gm Bottle NASAL SCH (09:12)
[2023-05-28 09:26] LABS: Hematocrit 24.7 % (42.0-52.0); Hemoglobin 8.4 g/dL (14.0-18.0); Manual Diff?? YES; Mean Corpuscular Hemoglobin 32.9 pg (27.0-31.0); Mean Corpuscular Volume 96.9 fl (78.0-98.0); Mean Platelet Volume 9.3 fL (7.4-10.4); Platelet Count 122 10x3/uL (130-400); RBC Distribution Width 15.3 % (11.5-14.5); Red Blood Cell (RBC) Count 2.55 mill/uL (4.70-6.10); White Blood Cell (WBC) Count 9.5 10x3/uL (4.8-10.8)
[2023-05-28] MEDS: Magnesium 2 GM/50 ML(in water) 2 GM in Premix 1 BAG IVPB SCH (09:32)
[2023-05-28 09:35] LABS: Delete Auto Diff?? YES
[2023-05-28 10:04] LABS: Band 4 % (5-11); Lymphocytes 11 % (21-51); Monocytes 7 % (0-10); Neutrophil 78 % (42-75)
[2023-05-28 10:05] LABS: Ovalocytes SLIGHT = 2-5 cells (100X) (0-1/hpf); Platelet Adequacy Comment Appears Decreased
[2023-05-28] MEDS ORDERED: Insulin Glargine 30 UNITS/0.3 ML VIAL SC PRN (11:58)
[2023-05-29 05:05] LABS: #Monocytes 1.8 thou/uL (0.11-0.59); #Neutrophils 7.7 thou/uL (1.40-6.50); %Basophils 0.2 % (0.0-1.0); %Eosinophils 0.4 % (0.0-10.0); %Lymphocytes 11.2 % (21.0-51.0); %Monocytes 16.5 % (0.0-10.0); %Neutrophils 71.1 % (42.0-75.0); Hematocrit 22.7 % (42.0-52.0); Hemoglobin 7.7 g/dL (14.0-18.0); Mean Corpuscular HGB CONC 33.9 g/dL (32.0-36.0); Mean Corpuscular Volume 97.4 fl (78.0-98.0); Mean Platelet Volume 9.6 fL (7.4-10.4); Platelet Count 122 10x3/uL (130-400); RBC Distribution Width 15.9 % (11.5-14.5); Red Blood Cell (RBC) Count 2.33 mill/uL (4.70-6.10); White Blood Cell (WBC) Count 10.8 10x3/uL (4.8-10.8)
[2023-05-29 05:32] LABS: Lactic Acid 1.5 mmol/L (0.5-2.2)
[2023-05-29 05:38] LABS: Anion Gap 9 mmol/L (10-20); BUN (Urea Nitrogen) 21 mg/dL (8.4-25.7); Calc. Creatinine Clearance 96 mL/min (70-130); Calcium 8.5 mg/dL (7.8-10.44); Carbon Dioxide 22 mmol/L (23-31); Chloride 105 mmol/L (98-107); Estimated GFR 87; Glucose 150 mg/dL (83-110); Potassium 4.3 mmol/L (3.5-5.1); Sodium 132 mmol/L (136-145)
[2023-05-29 07:56] LABS: ALT (SGPT) 11 U/L (8-55); AST (SGOT) 25 U/L (5-34); Albumin 3.6 g/dL (3.4-4.8); Alkaline Phosphatase 40 U/L (40-110); Anion Gap 9 mmol/L (10-20); BUN (Urea Nitrogen) 21 mg/dL (8.4-25.7); Bilirubin, Total 2.1 mg/dL (0.2-1.2); Calc. Creatinine Clearance 90 mL/min (70-130); Calcium 8.4 mg/dL (7.8-10.44); Carbon Dioxide 22 mmol/L (23-31); Chloride 105 mmol/L (98-107); Estimated GFR 85; Glucose 153 mg/dL (83-110); Potassium 4.2 mmol/L (3.5-5.1); Protein, Total 5.6 g/dL (5.8-8.1); Sodium 132 mmol/L (136-145)
[2023-05-29] MEDS: Lactated Ringer's 1,000 ML IV SCH (08:22)
[2023-05-29] MEDS: Furosemide 40 MG (4 mL) VIAL SLOW IVP SCH ×2 (08:25→15:09)
[2023-05-29] MEDS: Amiodarone 450 MG, Admixture Fee 1 EACH in Dextrose 5% in Water 250 ML IVPB SCH (13:00)
[2023-05-29 14:43] LABS: Platelet Count 112 10x3/uL (130-400)
[2023-05-29] MEDS: Ipratropium/Albuterol 3 ML NEB NEB PRN (15:48)
[2023-05-29] MEDS: Melatonin 3 MG TAB PO SCH (21:53)
[2023-05-30] MEDS: Acetaminophen 325 MG TAB PO PRN (03:16)
[2023-05-30 04:27] LABS: #Eosinphils 0.1 thou/uL (0.0-0.7); #Monocytes 1.6 thou/uL (0.11-0.59); #Neutrophils 7.1 thou/uL (1.40-6.50); %Basophils 0.2 % (0.0-1.0); %Lymphocytes 13.6 % (21.0-51.0); %Monocytes 15.2 % (0.0-10.0); %Neutrophils 69.4 % (42.0-75.0); Hematocrit 23.9 % (42.0-52.0); Hemoglobin 8.2 g/dL (14.0-18.0); Mean Corpuscular HGB CONC 34.3 g/dL (32.0-36.0); Mean Corpuscular Hemoglobin 32.9 pg (27.0-31.0); Mean Platelet Volume 9.5 fL (7.4-10.4); Platelet Count 111 10x3/uL (130-400); RBC Distribution Width 15.5 % (11.5-14.5); Red Blood Cell (RBC) Count 2.49 mill/uL (4.70-6.10); White Blood Cell (WBC) Count 10.2 10x3/uL (4.8-10.8)
[2023-05-30 04:43] LABS: Anion Gap 13 mmol/L (10-20); BUN (Urea Nitrogen) 22 mg/dL (8.4-25.7); Calc. Creatinine Clearance 87 mL/min (70-130); Calcium 8.1 mg/dL (7.8-10.44); Carbon Dioxide 22 mmol/L (23-31); Chloride 103 mmol/L (98-107); Estimated GFR 85; Glucose 124 mg/dL (83-110); Sodium 134 mmol/L (136-145)
[2023-05-30] MEDS ORDERED: Metoprolol Tartrate 25 MG TAB PO SCH (09:00)
[2023-05-30] MEDS: Digoxin 0.5 MG/2 ML AMP SLOW IVP SCH (13:27)
[2023-05-30] MEDS: FLU VACC QS2023(65UP)/MF59C/PF 60 MCG/0.5 ML SYRINGE IM ONE (20:02)
[2023-05-30] MEDS: Melatonin 3 MG TAB PO SCH (20:09)
[2023-05-30] MEDS: hydrALAZINE 20 MG/ML VIAL SLOW IVP PRN (21:05)
[2023-05-30] MEDS: Metoprolol Tartrate 5 MG (5 mL) VIAL IVP SCH (22:01)
[2023-05-31 07:52] VITALS: BMI 28.3
[2023-05-31] MEDS: Furosemide 20 MG TAB PO SCH (08:27)
[2023-05-31] MEDS: Polyethylene Glycol 3350 17 GM Packet PO PRN (12:03)
[2023-05-31 12:06] VITALS: TEMP 98.9
[2023-05-31 12:58] VITALS: BP 121/82
[2023-05-31] MEDS: Magnesium 2 GM/50 ML(in water) 2 GM in Premix 1 BAG IVPB SCH (13:48)
[2023-05-31] MEDS: Digoxin 0.5 MG/2 ML AMP SLOW IVP SCH (13:48)
[2023-06-01] MEDS ORDERED: Digoxin 0.125 MG TAB PO SCH (09:00)
== END 2023-05-31 16:20 | disposition home or self-care (01) | DRG 220 ==
LOC: SURG A 05-27 05:47 → CCU 05-27 11:59
PROVIDERS: ADMIT Thoracic Surgery (Cardiothoracic Vascular Surgery); ATTEND Thoracic Surgery (Cardiothoracic Vascular Surgery)
PROC: 02RF08Z Replacement of Aortic Valve with Zooplastic Tissue, Open Approach (ICD-10-PCS; principal; 2023-05-27)
PROC: 021109W Bypass Coronary Artery, Two Arteries from Aorta with Autologous Venous Tissue, Open Approach (ICD-10-PCS; 2023-05-27)
PROC: 06BQ4ZZ Excision of Left Saphenous Vein, Percutaneous Endoscopic Approach (ICD-10-PCS; 2023-05-27)
PROC: 5A1221Z Performance of Cardiac Output, Continuous (ICD-10-PCS; 2023-05-27)
PROC: 30243K1 Transfusion of Nonautologous Frozen Plasma into Central Vein, Percutaneous Approach (ICD-10-PCS; 2023-05-27)
PROC: 0D9670Z Drainage of Stomach with Drainage Device, Via Natural or Artificial Opening (ICD-10-PCS; 2023-05-28)
PROC: 30243N1 Transfusion of Nonautologous Red Blood Cells into Central Vein, Percutaneous Approach (ICD-10-PCS; 2023-05-28)
PROC: 30243R1 Transfusion of Nonautologous Platelets into Central Vein, Percutaneous Approach (ICD-10-PCS; 2023-05-28)
DX: I35.0 Nonrheumatic aortic (valve) stenosis (principal); D62 Acute posthemorrhagic anemia; I48.11 Longstanding persistent atrial fibrillation; I25.10 Atherosclerotic heart disease of native coronary artery without angina pectoris; R14.0 Abdominal distension (gaseous); I48.0 Paroxysmal atrial fibrillation; Z88.0 Allergy status to penicillin; Z95.0 Presence of cardiac pacemaker
CPT/HCPCS: 36416; 36430; 71045; 74018; 80048; 82805; 82947; 83605; 83735; 85025; 85027; 85610; 85730; 86850; 86900; 86901; 93005; 93010; 93798; 94002; 94640; 97139; A4311; A4648; C1713; C1751; C1776; C1889; J0282; J0360; J0690; J1160; J1642; J1644; J1815; J1885; J1940; J2001; J2150; J2250; J2405; J2440; J2704; J2720; J3010; J3370; J3370-JW; J3475; J3480; J7050; J7070; J7120; J7620; P9016; P9035; P9045; P9047; P9059; S0017; S0028